=== PATIENT | female | born 1960 | race Two or more races ===

== ENCOUNTER 2022-01-03 11:08 | Outpatient (REF) | payer OTHER, SELFPAY ==
--- NOTE | ~2022-01-03 | MM_ITS ---
EXAMINATION: MM SCREENING DIGITAL BREAST TOMOSYNTHESIS, BILATERAL CLINICAL INFORMATION: Screening. Asymptomatic. The lifetime risk of breast cancer based on the Tyrer-Cuzick Model is 5%. COMPARISON: Outside mammography: 02/21/2018 ([facility]) TECHNIQUE: Digital breast tomosynthesis is performed in both the craniocaudal and mediolateral oblique views along with computer-aided detection (CAD). Synthesized 2D images are generated from the tomosynthesis. Additional right CC and left MLO views are provided. FINDINGS: The breasts are almost entirely fatty (ACR BI-RADS breast composition Category a). There are fibroglandular densities in the anterior breasts similar to outside exam. There is no interval mass or architectural abnormality or abnormal calcifications. No developing density. Biopsy clip marker again seen posterior 1:00 right breast. The axilla and skin contours are unremarkable. MM/MM tomosynthesis screening BI IMPRESSION: No mammographic evidence of malignancy. ASSESSMENT: BI-RADS 1: Negative RECOMMENDATION: Routine annual mammography screening. This patient's information was entered into a reminder system with a target due date for their next mammogram.
== END 2022-01-03 11:09 | disposition home or self-care (01) ==
LOC: HO.MAMMO 11:08
PROVIDERS: PCP Internal Medicine; Visit Provider Internal Medicine
DX: Z12.31 Encounter for screening mammogram for malignant neoplasm of breast (principal)
CPT/HCPCS: 77063; 77067

== ENCOUNTER 2022-11-10 06:17 | Outpatient (REF) | payer OTHER, SELFPAY | END 2022-11-10 06:18 | disposition home or self-care (01) | LOC: HO.HOSX 06:17 | PROVIDERS: Visit Provider Physician Assistant | DX: Z13.89 Encounter for screening for other disorder (principal) ==

== ENCOUNTER 2022-11-14 14:06 | Outpatient (REF) | payer OTHER, SELFPAY ==
--- NOTE | ~2022-11-14 | MR_ITS ---
EXAMINATION: MR KNEE WITHOUT CONTRAST, LEFT CLINICAL INFORMATION: Chronic left knee pain COMPARISON: None available. TECHNIQUE: MRI of the knee without contrast was performed using routine sequences on a high-field scanner. FINDINGS: MENISCI: Medial Meniscus: Ill-defined undersurface tearing throughout the posterior horn and body. Lateral Meniscus: Chronic tearing the anterior horn which is essentially absent, extending along the inner margin of the meniscal body. LIGAMENTS: Cruciate: Mucoid degeneration and probable chronic partial tearing of the ACL. The posterior cruciate ligament is intact. Collateral: Intact EXTENSOR MECHANISM: Intact ARTICULAR CARTILAGE/BONE: Patellofemoral Compartment: Small marginal osteophytes. Medial Compartment: Near full-thickness cartilage loss of the posterior weightbearing femoral condyle. Prominent marginal osteophytes. Lateral Compartment: Remote, healed fracture involving the anterior aspect of the tibia with a reference projecting superiorly. Cartilage thinning and surface irregularity throughout the weightbearing aspect with large marginal osteophytes. Osteophyte projects from the femoral condyle into the intercondylar notch. JOINT FLUID AND BURSAE: Trace joint effusion. MR/MR knee LT wo con IMPRESSION: 1. Ill-defined undersurface tearing of the posterior horn and body of the medial meniscus. 2. Chronic tearing of the anterior horn and body of the lateral meniscus. Remote, healed fracture of the lateral tibial plateau anteriorly. 3. Mucoid degeneration and probable chronic partial tearing of the ACL. 4. Moderate tricompartmental osteoarthritis with a trace joint effusion.
== END 2022-11-14 14:07 | disposition home or self-care (01) ==
LOC: HO.MRI 14:06
PROVIDERS: PCP Internal Medicine; Visit Provider Internal Medicine
DX: M25.562 Pain in left knee (principal)
CPT/HCPCS: 73721

== ENCOUNTER 2022-12-05 14:10 | Outpatient (REF) | payer OTHER, SELFPAY ==
[2022-12-05 17:09] LABS: Basophils Absolute Auto 0.1 X10*3/uL (0.0-0.2); Eosinophils Absolute Auto 0.3 X10*3/uL (0.0-0.4); Eosinophils Percent Auto 3.7 % (0-4); Hematocrit 41.6 % (37.0-47.0); Hemoglobin 13.7 g/dl (12.0-16.0); Imm Gran Abs Auto 0.02 X10*3/uL (0.00-0.03); Imm Gran Pct Auto 0.3 % (0.0-0.4); Lymphocytes Percent Auto 26.9 % (20-40); MANUAL DIFF FLAG NO; Mean Corpuscular HGB Conc 32.9 g/dl (31.0-35.0); Mean Corpuscular Hemoglobin 30.6 pg (27.0-33.0); Mean Corpuscular Volume 93.1 fL (80.0-98.0); Mean Platelet Volume 10.5 fL (9.4-12.3); Monocytes Absolute Auto 0.6 X10*3/uL (0.1-1.2); Monocytes Percent Auto 8.7 % (2-11); Neutrophils Absolute Auto 4.4 x10*3/uL (2.0-8.3); Neutrophils Percent Auto 59.4 % (45-73); Platelet Count 254 X10*3/uL (160-400); Red Blood Count 4.47 X10*6/uL (4.20-5.50); White Blood Count 7.4 X10*3/uL (4.8-10.8)
[2022-12-05 17:49] LABS: Creatinine Urine 74.66 mg/dL; Microalbumin Urine < 5.0 mg/L
[2022-12-05 21:11] LABS: Alanine Aminotransferase 11 U/L (0-31); Albumin Level 4.2 g/dL (3.5-5.0); Alkaline Phosphatase 71 U/L (39-117); Anion Gap 19 (12-20); Aspartate Amino Transferase 19 U/L (5-31); Bilirubin Direct 0.2 mg/dL (0.0-0.5); Bilirubin Total 0.6 mg/dL (0.0-1.0); Blood Urea Nitrogen 9 mg/dL (9-16); Calcium 10.6 mg/dL (8.4-10.2); Carbon Dioxide 23 mmol/L (22-29); Chloride 103 mmol/L (96-108); Cholesterol 209 mg/dL; Estimated Glomerular Filt Rate > 60; Glucose Random 94 mg/dL (60-115); HDL Cholesterol 48 mg/dL; LDL Cholesterol Calculated 118 mg/dl; Potassium 4.5 mmol/L (3.3-5.1); Sodium 140 mmol/L (135-145); Total Protein 8.1 g/dL (6.5-8.0); Triglycerides 219 mg/dL
[2022-12-05 21:25] LABS: Vitamin D 25-OH Total 61.6 ng/mL (>30)
== END 2022-12-05 14:11 | disposition home or self-care (01) ==
LOC: HO.HHCL 14:10
PROVIDERS: Visit Provider Internal Medicine
DX: Z00.00 Encounter for general adult medical examination without abnormal findings (principal); Z20.2 Contact with and (suspected) exposure to infections with a predominantly sexual mode of transmission; E11.22 Type 2 diabetes mellitus with diabetic chronic kidney disease; I12.9 Hypertensive chronic kidney disease with stage 1 through stage 4 chronic kidney disease, or unspecified chronic kidney disease; N18.9 Chronic kidney disease, unspecified
CPT/HCPCS: 36415; 80048; 80061; 80076; 82043; 82306; 85025

== ENCOUNTER 2022-12-26 08:47 | Outpatient (REF) | payer OTHER, SELFPAY ==
--- NOTE | ~2022-12-26 | XR_ITS ---
EXAMINATION: XR KNEE AP STANDING CLINICAL INFORMATION: Pain in right knee COMPARISON: None available. TECHNIQUE: AP bilateral standing view of the knees was obtained. Lateral and sunrise view of the left knee FINDINGS: No fracture. Trace joint effusion of the left knee. Alignment is anatomic. There is marked narrowing of the lateral joint compartment and medial and lateral marginal osteophytes within the right knee. There are marginal osteophytes involving the patellofemoral and lateral joint compartment of the left knee. There is mild narrowing of all 3 joint compartments of the left knee. Left quadriceps enthesopathy is noted. Question of 0.5 cm loose body within the left knee, seen on the lateral view. XR/XR knee standing BI IMPRESSION: 1. Bilateral osteoarthritis, right greater than left. 2. Question of loose body within the left knee.
--- NOTE | ~2022-12-26 | XR_ITS ---
EXAMINATION: XR KNEE, LEFT CLINICAL INFORMATION: Pain in right knee COMPARISON: None available. TECHNIQUE: AP bilateral standing view of the knees was obtained. Lateral and sunrise view of the left knee FINDINGS: No fracture. Trace joint effusion of the left knee. Alignment is anatomic. There is marked narrowing of the lateral joint compartment and medial and lateral marginal osteophytes within the right knee. There are marginal osteophytes involving the patellofemoral and lateral joint compartment of the left knee. There is mild narrowing of all 3 joint compartments of the left knee. Left quadriceps enthesopathy is noted. Question of 0.5 cm loose body within the left knee, seen on the lateral view. XR/XR knee LT 2V IMPRESSION: 1. Bilateral osteoarthritis, right greater than left. 2. Question of loose body within the left knee.
== END 2022-12-26 08:48 | disposition home or self-care (01) ==
LOC: HO.HOSX 08:47
PROVIDERS: Visit Provider Physician Assistant
DX: M17.12 Unilateral primary osteoarthritis, left knee (principal)
CPT/HCPCS: 73560; 73565; 99202

== ENCOUNTER 2022-12-26 12:28 | Outpatient (AMB) | payer OTHER, SELFPAY ==
--- NOTE | 2022-12-26 12:40 | A.OFFVIS_ITS ---
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 Patient reports that she has had ongoing pain in the left knee for some time now, she reports history of a left knee done in [place]. She finds that the knee is becoming more painful and weak. She wears a knee brace for support. 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 She has a hx of left knee done in [place] in ~2012. She complains of pain with daily activity, along with fullness and swelling in her knee. She is adamant she does not want to discuss surgery [facility] Surgical History (Updated 12/26/22 @ 13:05 by Hodan Bell) H/O left knee surgery History of shoulder surgery Social History (Updated 12/26/22 @ 13:05 by Hodan Bell) Patient Tobacco Use Status: Current everyday Tobacco user Cigarette Packs Per Day: 0.5 Current occupational status: disabled Review of Systems Const All systems reviewed & are unremarkable except as noted in HPI and below Physical Exam Vital Signs: BMI result Body Mass Index 34.8 Const General: no acute distress, alert and awake Orientation/consciousness: patient oriented x3 HEENT Head: Yes normocephalic and Yes atraumatic Eyes EOM: EOMs intact bilaterally Resp Effort & Inspection: normal respiratory effort and able to speak in complete sentences Cardio Jugular venous distension: no JVD Skin General skin exam: turgor normal Rashes: no rashes Neuro General: patient oriented x3 Extrem Other: Left Knee: Moderate effusion Medial & lateral JLT Psych Appearance: grossly normal Affect: normal affect Attitude: cooperative Results Reviewed Results Reviewed: I personally reviewed relevant MR images 1.? Ill-defined undersurface tearing of the posterior horn and body of the medial meniscus. 2.? Chronic tearing of the anterior horn and body of the lateral meniscus. Remote, healed fracture of the lateral tibial plateau anteriorly. 3.? Mucoid degeneration and probable chronic partial tearing of the ACL. 4.? Moderate tricompartmental osteoarthritis with a trace joint effusion. Assessment & Plan Assessment & Plan (1) Osteoarthritis of left knee: Code(s): M17.12 - Unilateral primary osteoarthritis, left knee Plan: This is a 62 year old woman with moderate-severe left knee OA, most predominantly in lateral compartment. She has a hx of left knee meniscectomy in ~2012. She has pain with daily activity, along with swelling. She denies any prior treatment, and wears a knee brace with daily activity. I discussed her diagnosis and treatment options, including injections, PT, and surgery. She is adamant she does not want surgery. She is opposed to all intervention at this time, and will work on strengthening exercises at home, as well as take NSAIDs. She can follow up prn to discuss treatment options. Plan Scribed for Tu Harrington MD by Jorge Alvarez, medical technologist chemistry, on 12/26/22 at 1:15 PM, EST. Orders: Orders XR knee LT 2V 11/10/22 M25.562 - Pain in left knee XR knee standing BI 11/10/22 M25.561 - Pain in right knee, M25.562 - Pain in left knee XR knee LT 2V 12/26/22 M25.562 - Pain in left knee XR knee standing BI 12/26/22 M25.561 - Pain in right knee, M25.562 - Pain in lef t knee Coding Level of Care Code New Pt Level 3 (77197) Diagnoses Osteoarthritis of left knee M17.12
[2022-12-26 12:58] VITALS: BMI 34.8
== END 2022-12-26 13:16 | disposition home or self-care (01) ==
PROVIDERS: Visit Provider Orthopaedic Surgery
DX: M17.12 Unilateral primary osteoarthritis, left knee (principal)
CPT/HCPCS: 99203

== ENCOUNTER 2023-01-26 12:20 | Outpatient (REF) | payer OTHER, SELFPAY | END 2023-01-26 12:21 | disposition home or self-care (01) | LOC: HO.MAMMO 12:20 | PROVIDERS: PCP Internal Medicine; Visit Provider Internal Medicine | DX: Z12.31 Encounter for screening mammogram for malignant neoplasm of breast (principal) | CPT/HCPCS: 77063; 77067 ==

== ENCOUNTER → 2023-01-26 12:45 | Outpatient (BNV) | payer OTHER, SELFPAY | PROVIDERS: PCP Internal Medicine; Visit Provider Radiology Diagnostic Radiology | DX: Z12.31 Encounter for screening mammogram for malignant neoplasm of breast (principal) | CPT/HCPCS: 77063; 77067 ==

== ENCOUNTER 2023-10-02 11:27 | Outpatient (REF) | payer OTHER, SELFPAY ==
[2023-10-02 13:06] LABS: MANUAL DIFF FLAG NO
[2023-10-02 13:42] LABS: Basophils Absolute Auto 0.1 X10*3/uL (0.0-0.2); Basophils Percent Auto 0.6 % (0-2); Eosinophils Absolute Auto 0.4 X10*3/uL (0.0-0.4); Eosinophils Percent Auto 4.2 % (0-4); Hematocrit 39.4 % (37.0-47.0); Hemoglobin 12.8 g/dl (12.0-16.0); Imm Gran Abs Auto 0.04 X10*3/uL (0.00-0.03); Imm Gran Pct Auto 0.5 % (0.0-0.4); Lymphocytes Absolute Auto 2.4 X10*3/uL (1.2-4.9); Lymphocytes Percent Auto 29.6 % (20-40); Mean Corpuscular HGB Conc 32.5 g/dl (31.0-35.0); Mean Corpuscular Hemoglobin 30.3 pg (27.0-33.0); Mean Corpuscular Volume 93.4 fL (80.0-98.0); Mean Platelet Volume 10.2 fL (9.4-12.3); Monocytes Absolute Auto 0.6 X10*3/uL (0.1-1.2); Monocytes Percent Auto 7.2 % (2-11); Neutrophils Absolute Auto 4.8 x10*3/uL (2.0-8.3); Neutrophils Percent Auto 57.9 % (45-73); Platelet Count 290 X10*3/uL (160-400); Red Blood Count 4.22 X10*6/uL (4.20-5.50); Red Cell Distribution Width 12.8 % (11.0-16.0); White Blood Count 8.2 X10*3/uL (4.8-10.8)
[2023-10-02 14:15] LABS: Alanine Aminotransferase 15 U/L (0-31); Alkaline Phosphatase 90 U/L (39-117); Anion Gap 15 (12-20); Aspartate Amino Transferase 22 U/L (5-31); Bilirubin Direct 0.1 mg/dL (0.0-0.5); Bilirubin Total 0.3 mg/dL (0.0-1.0); Blood Urea Nitrogen 16 mg/dL (9-16); Calcium 10.1 mg/dL (8.4-10.2); Carbon Dioxide 25 mmol/L (22-29); Chloride 104 mmol/L (96-108); Cholesterol 160 mg/dL (<200); Estimated Glomerular Filt Rate > 60; Glucose Random 82 mg/dL (60-115); HDL Cholesterol 50 mg/dL (>40); LDL Cholesterol Calculated 81 mg/dL (<100); Potassium 4.6 mmol/L (3.3-5.1); Sodium 139 mmol/L (135-145); Triglycerides 146 mg/dL (<150)
[2023-10-03 04:19] LABS: HIV AB/AG Nonreactive (Nonreactive); HIV Num 1 0.04 S/CO (0.00-0.99); ~HepC Num1 0.12 S/CO (0.00-0.79); ~Hepatitis C Antibody Nonreactive (Nonreactive)
[2023-10-03 11:50] LABS: CT PCR NOT DETECTED (Not Detect.); NG PCR NOT DETECTED (Not Detect.)
[2023-10-04 07:03] LABS: RPR Rapid Plasma Reagin NON-REACTIVE (NON-REACTIVE)
== END 2023-10-02 11:28 | disposition home or self-care (01) ==
LOC: HO.HHCL 11:27
PROVIDERS: Visit Provider Internal Medicine
DX: Z00.00 Encounter for general adult medical examination without abnormal findings (principal); Z11.4 Encounter for screening for human immunodeficiency virus [HIV]; Z13.6 Encounter for screening for cardiovascular disorders; Z20.2 Contact with and (suspected) exposure to infections with a predominantly sexual mode of transmission
CPT/HCPCS: 0353U; 36415; 80048; 80061; 80076; 82306; 85025; 86592; 86803; 87389

== ENCOUNTER 2023-10-31 13:15 | Outpatient (REF) | payer OTHER, SELFPAY ==
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
== END 2023-10-31 13:16 | disposition home or self-care (01) ==
LOC: HO.HHCX 13:15
PROVIDERS: Visit Provider Internal Medicine
DX: M25.511 Pain in right shoulder (principal); V89.2XXD Person injured in unspecified motor-vehicle accident, traffic, subsequent encounter
CPT/HCPCS: 73030

== ENCOUNTER 2023-12-01 11:12 | Outpatient (AMB) | payer OTHER, SELFPAY ==
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
[2023-12-01 11:17] VITALS: BMI 34.8
== END 2023-12-01 12:42 | disposition home or self-care (01) ==
PROVIDERS: PCP Internal Medicine; Visit Provider Orthopaedic Surgery
DX: M12.811 Other specific arthropathies, not elsewhere classified, right shoulder (principal); M25.311 Other instability, right shoulder
CPT/HCPCS: 99214

== ENCOUNTER → 2023-12-01 11:12 | Outpatient (BNVA) | payer OTHER, SELFPAY | PROVIDERS: PCP Internal Medicine; Visit Provider Orthopaedic Surgery ==

== ENCOUNTER 2023-12-18 14:39 | Outpatient (REF) | payer OTHER, SELFPAY ==
--- NOTE | ~2023-12-18 | US_ITS ---
EXAMINATION: US THYROID CLINICAL INFORMATION: Right thyroid lobe nodule. COMPARISON: None available. TECHNIQUE: Linear transducer grayscale and color Doppler examination with attention to the region of the thyroid. FINDINGS: SIZE: Measurements of the thyroid lobes and nodules are given in sagittal, anteroposterior and transverse dimensions respectively. Right Thyroid Lobe: 6.1 x 2.4 x 2.6 cm, volume 19.9 mL. Parenchyma: The gland echotexture is heterogeneous. Thyroid vascularity is normal. Left Thyroid Lobe: 4.2 x 1.4 x 1.3 cm, volume 4.2 mL. Parenchyma: The gland echotexture is heterogeneous. Thyroid vascularity is normal. Isthmus: 0.5 cm in maximum AP dimension. Estimated total number of nodules greater than or equal to 1 cm: 1. Spanish Linguist nodules are described as follows: 1. Location: Right inferior. Size: 3.0 x 2.1 x 2.6 cm, volume 8.5 mL. Nodule characteristics: Composition: Solid/almost completely solid (2). Echogenicity: Isoechoic (1). Shape: Not taller than wide (0). Margins: Smooth (0). Echogenic Foci: None (0). ACR TI-RADS total points: 3 ACR TI-RADS category: 3 2. Location: Left mid. Size: 0.4 x 0.4 x 0.5 cm, volume 0.05 mL. Nodule characteristics: Composition: Mixed cystic and solid (1). Echogenicity: Isoechoic (1). Shape: Not taller than wide (0). Margins: Smooth (0). Echogenic Foci: None (0). ACR TI-RADS total points: 2 ACR TI-RADS category: 2 3. Location: Left mid. Size: 0.6 x 0.3 x 0.5 cm, volume 0.04 mL. Nodule characteristics: Composition: Mixed cystic and solid (1). Echogenicity: Hypoechoic (2). Shape: Not taller than wide (0). Margins: Smooth (0). Echogenic Foci: Punctate echogenic foci (3). ACR TI-RADS total points: 6 ACR TI-RADS category: 4 NODES: No lymphadenopathy is seen in the tissue surrounding the thyroid gland. US/US thyroid IMPRESSION: 1. A 3.0 cm in maximal diameter inferior right thyroid lobe TR 3 nodule meets ACR biopsy criteria and is amenable to ultrasound-guided biopsy, if clinically indicated and not already performed. 2. There is heterogeneous thyroid echotexture, which can be associated with thyroiditis. 3. There is an asymmetric goiter, right lobe greater than left. ACR TI-RADS RECOMMENDATION REFERENCE: Ultrasound-guided fine-needle aspiration, followup ultrasound, no further follow up. * TR1 (0 point) and TR2 (2 points): No FNA or follow up. * TR3 (3 points): FNA if more than or equal to 2.5 cm in maximum dimension, followup ultrasound in 1, 3 and 5 years if 1.5 to 2.4 cm in maximum dimension. * TR4 (4-6 points): FNA if more than or equal to 1.5 cm in maximum dimension, followup ultrasound in 1, 2, 3 and 5 years if 1 to 1.4 cm in maximum dimension. * TR5 (more than or equal to 7 points): FNA if more than or equal to 1 cm in maximum dimension, followup ultrasound every year for 5 years if 0.5 to 0.9 cm in maximum dimension. * TR3, TR4 or TR5 nodules that are below the size threshold for followup receive no follow up.
== END 2023-12-18 14:40 | disposition home or self-care (01) ==
LOC: HO.US 14:39
PROVIDERS: Visit Provider Internal Medicine
DX: E04.1 Nontoxic single thyroid nodule (principal)
CPT/HCPCS: 76536

== ENCOUNTER 2024-02-22 10:59 | Outpatient (REF) | payer OTHER, SELFPAY ==
[2024-02-22 12:36] LABS: Creatinine Urine 60.98 mg/dL; Microalbum/Creatinine Ratio Ur 11.4 ug/mg cr (<30)
== END 2024-02-22 11:00 | disposition home or self-care (01) ==
LOC: HO.HHCL 10:59
PROVIDERS: Visit Provider Internal Medicine
DX: E11.22 Type 2 diabetes mellitus with diabetic chronic kidney disease (principal)
CPT/HCPCS: 82043; 82570

== ENCOUNTER 2024-02-27 14:23 | Outpatient (REF) | payer OTHER, SELFPAY ==
--- NOTE | ~2024-02-27 | MM_ITS ---
EXAMINATION: MM SCREENING DIGITAL BREAST TOMOSYNTHESIS, BILATERAL CLINICAL INFORMATION: Screening. Asymptomatic. COMPARISON: Mammography: Comparison is made with available priors TECHNIQUE: Digital breast mammography with tomosynthesis is performed in both the craniocaudal and mediolateral oblique views along with computer-aided detection (CAD). FINDINGS: There are scattered areas of fibroglandular density (ACR BI-RADS breast composition Category b). There are no significant masses, abnormal calcifications, or other abnormalities. MM/MM tomosynthesis screening BI IMPRESSION: No mammographic evidence of malignancy. ASSESSMENT: BI-RADS BI-RADS 1 - Negative RECOMMENDATION: Routine annual mammography screening. 1 year F/U This examination should not preclude the clinical evaluation of a suspicious palpable abnormality. This patient's information was entered into a reminder system with a target due date for their next mammogram. Electronically signed by: Crystal Charles DO 03/08/2024 09:04 AM EDT
== END 2024-02-27 14:24 | disposition home or self-care (01) ==
LOC: HO.MAMMO 14:23
PROVIDERS: PCP Internal Medicine; Visit Provider Internal Medicine
DX: Z12.31 Encounter for screening mammogram for malignant neoplasm of breast (principal)
CPT/HCPCS: 77063; 77067

== ENCOUNTER → 2024-02-27 14:45 | Outpatient (BNV) | payer OTHER, SELFPAY | PROVIDERS: PCP Internal Medicine; Visit Provider Internal Medicine | DX: Z12.31 Encounter for screening mammogram for malignant neoplasm of breast (principal) | CPT/HCPCS: 77063; 77067 ==

== ENCOUNTER 2024-02-29 10:32 | Outpatient (AMB) | payer OTHER, SELFPAY ==
[2024-02-29 10:34] VITALS: BMI 34.8
--- NOTE | 2024-02-29 10:34 | A.OFFVIS_ITS ---
Vital Signs 02/29/24 10:34 Height 4 ft 9 in Weight 161 lb BMI 34.8 Intake Visit Reasons: Preop RT shoulder capsular plication 03/06/24 NE Intake Note: Kim is a 63 year old right hand dominant female who presents today for a pre op appointment s/p RT shoulder capsular plication 03/06/24 NE. 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 Harrington. The patient has tried and failed all conservative treatments. She reports her pain is limiting her daily activities. Therefore, she has elected to proceed with a right shoulder capsular plication. Patient has no known allergy history. Patient is currently taking, as follows: -Aspirin 81 mg chewable tablet 1 tab PO. -Atorvastatin 40 mg PO. -Bupropion HCL XL 150 mg ea PO -Chlorthalidone 25 mg PO -Cholecalciferol 50 mcg PO -Famotidine 40 mg PO -Gabapentin 400 mg PO -Metformin 500 mg PO -Quetiapine 300 mg PO. -Trazodone 50 mg PO. Patient has a medical history, as follows: -Tobacco dependence -Diabetes. Patient has a surgical history, as follows: -Hx of right shoulder surgery; in [place]. -Hx of left knee surgery; in [place]. Patient has a social history, as follows: -Tobacco: Cigarettes, 0.5 PPD. [facility] Medical History (Updated 02/29/24 @ 11:04 by Quiana Olivares PA-C) Tobacco dependence Diabetes Surgical History (System 09/15/23 @ 09:43 by Yoli Xie) History of shoulder surgery H/O left knee surgery Social History Patient Tobacco Use Status: Current everyday Tobacco user Cigarette Packs Per Day: 0.5 Current occupational status: disabled Review of Systems Const All systems reviewed & are unremarkable except as noted in HPI and below Physical Exam Vital Signs: BMI result Body Mass Index 34.8 Const General: cooperative, healthy appearing, comfortable, no acute distress, well developed, alert and awake Orientation/consciousness: patient oriented x3 HEENT Head: Yes normal to inspection, Yes normocephalic and Yes atraumatic Eyes General: appearance normal, both eyes and all related structures Neck Neck: Yes normal visual inspection and Yes no lymphadenopathy Resp Effort & Inspection: normal respiratory effort and able to speak in complete sentences Cardio Rate: regular rate Peripheral pulses: Peripheral pulses 2+ throughout GI Inspection: Yes normal to inspection Palpation (GI): Soft to palpation Skin General skin exam: no rashes or lesions noted Neuro General: patient oriented x3 Extrem Other: + drop arm on right 2+ sulcus + apprehension 4-/5 EC Psych Mental Status: mental status grossly normal Assessment & Plan Assessment & Plan (1) Instability of right shoulder joint: Code(s): M25.311 - Other instability, right shoulder Category: Medical (2) Rotator cuff arthropathy of right shoulder: Code(s): M12.811 - Other specific arthropathies, not elsewhere classified, right shoulder Category: Medical Plan Ms. Cristian Bruce is a 63-year-old female who presents in the office today for her preoperative history and physical exam prior to a right shoulder capsular plication to be performed on 03/06/[address] Harrington. The patient has tried and failed all conservative treatments. She reports her pain is limiting her daily activities. Therefore, she has elected to proceed with a right shoulder capsular plication. Patient has no known allergy history. Patient is currently taking, as follows: -Aspirin 81 mg chewable tablet 1 tab PO. -Atorvastatin 40 mg PO. -Bupropion HCL XL 150 mg ea PO -Chlorthalidone 25 mg PO -Cholecalciferol 50 mcg PO -Famotidine 40 mg PO -Gabapentin 400 mg PO -Metformin 500 mg PO -Quetiapine 300 mg PO. -Trazodone 50 mg PO. Patient has a medical history, as follows: -Tobacco dependence -Diabetes. Patient has a surgical history, as follows: -Hx of right shoulder surgery; in [place]. -Hx of left knee surgery; in [place]. Patient has a social history, as follows: -Tobacco: Cigarettes, 0.5 PPD. The patient was placed in the sling, off the shelf. She will bring the sling on the day of surgery. I have placed a referral to physical therapy. I discussed in detail the procedure and what to expect pre and post operatively. We discussed the risks, benefits and alternatives to the surgery and the rehabilitation course. The risks include infection, bleeding, nerve injury, ongoing pain, swelling, and stiffness, perioperative risk of injury to bones and soft tissues, and blood clots. I have answered all questions and with their understanding they have consented to move forward with a right shoulder capsular plication to be performed on 03/06/[address] Harrington. Post operative medications were sent to the pharmacy, morphine ER 15 mg PO Q12H 6 tablets for 3 days and oxycodone-acetaminophen 5-325 mg 1 tab PO Q4-6H PRN, while in the office today. The patient was instructed that she should obtain the prescription prior to surgery but should not consume until after the procedure; as these should only be taken for postoperative pain management. Should the patient take these medications before surgery, a refill will not be sent to the pharmacy until their scheduled refill date. Follow-up will be at the post operative appointment on 03/14/24, or sooner if needed. Orders: Orders PT Evaluation and Treatment Today M25.311 - Other instability, right shoulder Medications: New morphine ER (MS Contin) Partial Fill upon patient request. 15 mg PO Q12H 6 tabs 0RF 3 days oxycodone-acetaminophen 5-325 mg (Percocet) Partial Fill upon patient request. 1 tab PO Q4-6H PRN 42 tabs 0RF pain (scale score 4-6) 7 days Patient Instructions: Scribed by Sandra Parikh medical receptionist medical assistant, for Quiana Olivares PA-C on 02/29/24 at 11:20 am EST. Coding Level of Care Code Global (29993) Diagnoses Instability of right shoulder joint M25.311 Rotator cuff arthropathy of right shoulder M12.811
== END 2024-02-29 11:22 | disposition home or self-care (01) ==
PROVIDERS: PCP Internal Medicine; Visit Provider Physician Assistant
DX: M25.311 Other instability, right shoulder (principal); M12.811 Other specific arthropathies, not elsewhere classified, right shoulder
CPT/HCPCS: 99024

== ENCOUNTER → 2024-02-29 10:32 | Outpatient (BNVA) | payer OTHER, SELFPAY | PROVIDERS: PCP Internal Medicine; Visit Provider Physician Assistant | DX: M25.311 Other instability, right shoulder (principal); M12.811 Other specific arthropathies, not elsewhere classified, right shoulder | CPT/HCPCS: 99212 ==

== ENCOUNTER → 2024-03-13 07:39 | Day surgery (SDC) | payer OTHER, SELFPAY ==
[2024-03-04 13:46] VITALS: BMI 34.8
--- NOTE | 2024-03-04 14:18 | P.CONAN_ITS ---
Documented by User: Milla Cortes NP 03/04/24 14:21 HPI - Anesthesia Eval Consult details Narrative: 63yo F for Right Shoulder Arthroscopy with Capsular Plication, 03/13/24 [facility] Active Problems Active Problems: All Active Problems Instability of right shoulder joint (Acute) Rotator cuff arthropathy of right shoulder (Acute) Osteoarthritis of left knee (Acute) Past Medical History Medical History Osteoarthritis HTN (hypertension) Tobacco dependence Diabetes Surgical History Surgical History History of shoulder surgery H/O left knee surgery Social History Social History Are you a primary property caretaker to a significant other at home: No Do you presently have visiting nurse or other home services: No Patient Tobacco Use Status: Current everyday Tobacco user Cigarette Packs Per Day: 0.5 Cigarettes Per Day: 12 Smoked in Last 30 Days: Yes Patient Interested in Nicotine Replacement: No Use of substances other than those prescribed or required for medical reasons: No Have you been hit, kicked, punched, or otherwise hurt by someone within the past year? If so, by whom?: No Are you DNR?: No Advance Directives: No Advance Directives Information Provided: Yes Recently lost weight without trying: No Nutrition Risks: No Nutritional Risk Patient : No Current occupational status: disabled Meds Allergies Allergy/AdvReac Type Severity Reaction Status Date / Time No Known Allergies Allergy Verified 03/13/24 09:39 Home Medications ?Medication ?Instructions ?Recorded ?Confirmed ?Last Taken ?Type aspirin 81 mg chewable tablet 1 tab PO DAILY 12/26/22 03/13/24 Unknown History atorvastatin 40 mg tablet 40 mg PO DAILY 12/26/22 03/13/24 Unknown History bupropion HCl 150 mg 24 hr tablet, 300 mg PO QAM 12/26/22 03/13/24 03/13/24 History extended release chlorthalidone 25 mg tablet 25 mg PO DAILY 12/26/22 03/13/24 Unknown History cholecalciferol (vitamin D3) 50 50 mcg PO DAILY 12/26/22 03/13/24 Unknown H istory mcg (2,000 unit) tablet (Vitamin D3) famotidine 40 mg tablet 40 mg PO DAILY 12/26/22 03/13/24 Unknown History gabapentin 800 mg tablet 400 mg PO DAILY 12/26/22 03/13/24 Unknown History metformin 500 mg tablet 500 mg PO BID 12/26/22 03/13/24 Unknown History quetiapine 300 mg tablet 300 mg PO BEDTIME 12/26/22 03/13/24 Unknown History trazodone 100 mg tablet 50 mg PO BEDTIME 12/26/22 03/13/24 Unknown History enalapril maleate 20 mg tablet 20 mg PO DAILY 03/13/24 03/13/24 03/13/24 History Exam Height,Weight and Vital Signs: Height 4 ft 9 in Weight 73.028 kg Pertinent Lab Results Pertinent Lab Results: Laboratory Tests 10/02/23 10/02/23 10:13 11:30 WBC 8.2 Hgb 12.8 Hct 39.4 Plt Count 290 Sodium 139 Potassium 4.6 Chloride 104 Carbon Dioxide 25 BUN 16 Creatinine 0.89 Assessment and Plan Assessment Anesthesia Assessment: Chart Reviewed Documented by User: Seble Moody MD 03/13/24 10:34 [facility] Past Medical History Medical History Osteoarthritis HTN (hypertension) Tobacco dependence Diabetes Surgical History Surgical History History of shoulder surgery H/O left knee surgery Social History Social History Are you a primary property caretaker to a significant other at home: No Do you presently have visiting nurse or other home services: No Patient Tobacco Use Status: Current everyday Tobacco user Cigarette Packs Per Day: 0.5 Cigarettes Per Day: 12 Smoked in Last 30 Days: Yes Patient Interested in Nicotine Replacement: No Use of substances other than those prescribed or required for medical reasons: No Have you been hit, kicked, punched, or otherwise hurt by someone within the past year? If so, by whom?: No Are you DNR?: No Advance Directives: No Advance Directives Information Provided: Yes Recently lost weight without trying: No Nutrition Risks: No Nutritional Risk Patient : No Current occupational status: disabled Meds Allergies Allergy/AdvReac Type Severity Reaction Status Date / Time No Known Allergies Allergy Verified 03/13/24 09:39 Home Medications ?Medication ?Instructions ?Recorded ?Confirmed ?Last Taken ?Type aspirin 81 mg chewable tablet 1 tab PO DAILY 12/26/22 03/13/24 Unknown History atorvastatin 40 mg tablet 40 mg PO DAILY 12/26/22 03/13/24 Unknown History bupropion HCl 150 mg 24 hr tablet, 300 mg PO QAM 12/26/22 03/13/24 03/13/24 History extended release chlorthalidone 25 mg tablet 25 mg PO DAILY 12/26/22 03/13/24 Unknown History cholecalciferol (vitamin D3) 50 50 mcg PO DAILY 12/26/22 03/13/24 Unknown History mcg (2,000 unit) tablet (Vitamin D3) famotidine 40 mg tablet 40 mg PO DAILY 12/26/22 03/13/24 Unknown History gabapentin 800 mg tablet 400 mg PO DAILY 12/26/22 03/13/24 Unknown History metformin 500 mg tablet 500 mg PO BID 12/26/22 03/13/24 Unknown History quetiapine 300 mg tablet 300 mg PO BEDTIME 12/26/22 03/13/24 Unknown History trazodone 100 mg tablet 50 mg PO BEDTIME 12/26/22 03/13/24 Unknown History enalapril maleate 20 mg tablet 20 mg PO DAILY 03/13/24 03/13/24 03/13/24 History Exam Airway Mallampati Class: II TM Dist: >3cm Neck ROM: Full Heart: rrr Lungs: cta Assessment and Plan Anesthetic Plan Anesthetic Plan: Other (case cancelled, BP SYSTOLIC 69 AT BEST, PT TOOK ALL HER MEDS ENALAPRIL, PAIN MEDS ETC . TOLD TO HOLD ENALAPRIL AND LONGACTING PAIN MEDS NEXT TIME.)
--- NOTE | 2024-03-13 09:05 | ECG_ITS ---
Test Reason : dm, htn, smoker Blood Pressure : / mmHG Vent. Rate : 090 BPM Atrial Rate : 090 BPM P-R Int : 136 ms QRS Dur : 074 ms QT Int : 372 ms P-R-T Axes : 029 061 050 degrees QTc Int : 455 ms Normal sinus rhythm Nonspecific T wave abnormality Borderline ECG No previous ECGs available Referred By: Milla Cortes Electronically Signed By:AMY BULLOCK
[2024-03-13 10:03] VITALS: BP 80/46; PULSE 90; RESP 14; TEMP 37; O2SAT 95; BMI 35.7
[2024-03-13] MEDS: Lactated Ringers 1,000 ML 100 ML IVCONT (10:07)
[2024-03-13 10:24] LABS: Glucose, Whole Blood 79 mg/dL (60-115)
== END | disposition home or self-care (01) ==
PROVIDERS: PCP Internal Medicine; Visit Provider Orthopaedic Surgery
DX: M12.811 Other specific arthropathies, not elsewhere classified, right shoulder (principal); Z53.8 Procedure and treatment not carried out for other reasons; I95.9 Hypotension, unspecified; M25.311 Other instability, right shoulder; E11.9 Type 2 diabetes mellitus without complications
CPT/HCPCS: 82947; 93005; J0131; J0690

== ENCOUNTER → 2024-03-13 09:05 | Outpatient (BNV) | payer OTHER, SELFPAY | PROVIDERS: PCP Internal Medicine; Visit Provider Internal Medicine | DX: E11.9 Type 2 diabetes mellitus without complications (principal) | CPT/HCPCS: 93010 ==

== ENCOUNTER 2024-04-10 07:49 | Day surgery (SDC) | payer OTHER, SELFPAY ==
[2024-04-08 08:11] VITALS: BMI 34.8
[2024-04-10] VITALS (10 sets, daily range): BP systolic 108–135; BP diastolic 35–92; PULSE 79–88; RESP 16–18; TEMP 36.4–36.6; O2SAT 92–98
[2024-04-10 09:37] LABS: Glucose, Whole Blood 73 mg/dL (60-115)
[2024-04-10] MEDS: Lactated Ringers 1,000 ML 100 ML IVCONT (09:48)
--- NOTE | 2024-04-10 09:51 | MHC.SHP ---
Pre-Procedural Eval Section A - 24 Hr Update-Section A only Date of Service: 04/10/24 The patient is an INPATIENT: No Changes since office visit: No Cold of Flu in the past 2 weeks, No New Medical Problems, No Changes in Medication and No Patient answered all questions The patient has been examined within 24 hours of the surgical procedure. The History & Physical has been completed within 30 days and I have reviewed it.: Yes Section B - Complete if H&P > 30 days Chief Complaint: Other specific arthropathies,instability Allergies: Allergies Allergy/AdvReac Type Severity Reaction Status Date / Time No Known Allergies Allergy Verified 03/13/24 09:39 Plan I have reviewed the history and physical and performed a pertinent physical examination on my patient. No changes have occurred unless specified. Time Spent With Patient Time: Total time managing care of this patient today ____ minutes.
--- NOTE | 2024-04-10 10:00 | HO.ANESPROP2 ---
Documented by User: Milla Cortes NP 04/09/24 10:30 HPI - Anesthesia Eval Consult details Narrative: 63yo F for Right Shoulder Arthroscopy with Capsular Plication Previous cancelled 02/2024 s/t low BP Anesthetic Plan Anesthetic Plan: Other (case cancelled, BP SYSTOLIC 69 AT BEST, PT TOOK ALL HER MEDS ENALAPRIL, PAIN MEDS ETC . TOLD TO HOLD ENALAPRIL AND LONGACTING PAIN MEDS NEXT TIME.) PMFSH Active Problems Active Problems: All Active Problems Instability of right shoulder joint (Acute) Rotator cuff arthropathy of right shoulder (Acute) Osteoarthritis of left knee (Acute) Past Medical History Medical History Osteoarthritis HTN (hypertension) Tobacco dependence Diabetes Surgical History Surgical History History of shoulder surgery H/O left knee surgery Social History Social History Are you a primary health and social care teacher to a significant other at home: No Do you presently have visiting nurse or other home services: No Patient Tobacco Use Status: Current everyday Tobacco user Tobacco use type: Cigarette Cigarette Packs Per Day: 0.5 Cigarettes Per Day: 1 Use of substances other than those prescribed or required for medical reasons: No Advance Directives: No Advance Directives Information Provided: Yes Current occupational status: disabled Meds Allergies Allergy/AdvReac Type Severity Reaction Status Date / Time No Known Allergies Allergy Verified 03/13/24 09:39 Home Medications ?Medication ?Instructions ?Recorded ?Confirmed ?Last Taken ?Type aspirin 81 mg chewable tablet 1 tab PO DAILY 12/26/22 04/10/24 Unknown History atorvastatin 40 mg tablet 40 mg PO DAILY 12/26/22 04/10/24 Unknown History bupropion HCl 150 mg 24 hr tablet, 300 mg PO QAM 12/26/22 04/10/24 03/13/24 History extended release chlorthalidone 25 mg tablet 25 mg PO DAILY 12/26/22 04/10/24 Unknown History cholecalciferol (vitamin D3) 50 50 mcg PO DAILY 12/26/22 04/10/24 Unknown History mcg (2,000 unit) tablet (Vitamin D3) famotidine 40 mg tablet 40 mg PO DAILY 12/26/22 04/10/24 04/10/24 07:00 History gabapentin 800 mg tablet 400 mg PO DAILY 12/26/22 04/10/24 04/10/24 07:00 History metformin 500 mg tablet 500 mg PO BID 12/26/22 04/10/24 Unknown History quetiapine 300 mg tablet 300 mg PO BEDTIME 12/26/22 04/10/24 Unknown History trazodone 100 mg tablet 50 mg PO BEDTIME 12/26/22 04/10/24 Unknown History enalapril maleate 20 mg tablet 20 mg PO DAILY 03/13/24 04/10/24 03/13/24 History Exam Height,Weight and Vital Signs: Height 4 ft 9 in Weight 73.028 kg Pertinent Lab Results Pertinent Lab Results: Laboratory Tests 10/02/23 10/02/23 10:13 11:30 WBC 8.2 Hgb 12.8 Hct 39.4 Plt Count 290 Sodium 139 Potassium 4.6 Chloride 104 Carbon Dioxide 25 BUN 16 Creatinine 0.89 Narrative Narrative: EKG 02/2024 Vent. Rate : 090 BPM Atrial Rate : 090 BPM P-R Int : 136 ms QRS Dur : 074 ms QT Int : 372 ms P-R-T Axes : 029 061 050 degrees QTc Int : 455 ms Normal sinus rhythm Nonspecific T wave abnormality Borderline ECG No previous ECGs available Assessment and Plan Assessment Anesthesia Assessment: Chart Reviewed Documented by User: Nailni Marie DO 04/10/24 10:40 HPI - Anesthesia Eval Consult details Narrative: 63yo F for Right Shoulder Arthroscopy with Capsular Plication Previous cancelled 02/2024 s/t low BP - okay today with SBP in the 120s. Smoker 1/2 ppd PMFSH Past Medical History Medical History Osteoarthritis HTN (hypertension) Tobacco dependence Diabetes Family History Family history of problems with anesthesia: No Surgical History Surgical History History of shoulder surgery H/O left knee surgery History of Problems with Anesthesia: No Social History Social History Are you a primary health and social care teacher to a significant other at home: No Do you presently have visiting nurse or other home services: No Patient Tobacco Use Status: Current everyday Tobacco user Tobacco use type: Cigarette Cigarette Packs Per Day: 0.5 Cigarettes Per Day: 1 Use of substances other than those prescribed or required for medical reasons: No Advance Directives: No Advance Directives Information Provided: Yes Current occupational status: disabled Meds Allergies Allergy/AdvReac Type Severity Reaction Status Date / Time No Known Allergies Allergy Verified 03/13/24 09:39 Home Medications ?Medication ?Instructions ?Recorded ?Confirmed ?Last Taken ?Type aspirin 81 mg chewable tablet 1 tab PO DAILY 12/26/22 04/10/24 Unknown History atorvastatin 40 mg tablet 40 mg PO DAILY 12/26/22 04/10/24 Unknown History bupropion HCl 150 mg 24 hr tablet, 300 mg PO QAM 12/26/22 04/10/24 03/13/24 History extended release chlorthalidone 25 mg tablet 25 mg PO DAILY 12/26/22 04/10/24 Unknown History cholecalciferol (vitamin D3) 50 50 mcg PO DAILY 12/26/22 04/10/24 Unknown History mcg (2,000 unit) tablet (Vitamin D3) famotidine 40 mg tablet 40 mg PO DAILY 12/26/22 04/10/24 04/10/24 07:00 History gabapentin 800 mg tablet 400 mg PO DAILY 12/26/22 04/10/24 04/10/24 07:00 History metformin 500 mg tablet 500 mg PO BID 12/26/22 04/10/24 Unknown History quetiapine 300 mg tablet 300 mg PO BEDTIME 12/26/22 04/10/24 Unknown History trazodone 100 mg tablet 50 mg PO BEDTIME 12/26/22 04/10/24 Unknown History enalapril maleate 20 mg tablet 20 mg PO DAILY 03/13/24 04/10/24 03/13/24 History Exam Exam Date and Time: 04/10/24 1000 Height,Weight and Vital Signs: Height 4 ft 9 in Weight 73.028 kg Vital Signs Temperature 97.9 F 04/10/24 09:28 Pulse Rate 88 04/10/24 09:28 Respiratory Rate 16 04/10/24 09:28 Blood Pressure 124/56 L 04/10/24 09:28 Pulse Oximetry 97 04/10/24 09:28 Oxygen Delivery Method Room Air 04/10/24 09:28 Temperature 97.9 F 04/10/24 09:28 Pulse Rate 88 04/10/24 09:28 Respiratory Rate 16 04/10/24 09:28 Blood Pressure 124/56 L 04/10/24 09:28 Pulse Oximetry 97 04/10/24 09:28 Oxygen Delivery Method Room Air 04/10/24 09:28 Airway Mallampati Class: II TM Dist: >3cm Denture: Upper and Lower Heart: S1S2 Lungs: CTAB Assessment and Plan Assessment Anesthesia Assessment: Anesthesia Plan Discussed and Chart Reviewed Final Anesthetic Review Family History of Problems with Anesthesia: No History of Problems with Anesthesia: No NPO: Yes ASA Class: II Final Preanesthetic Review: No Changes in Pt Med Stat, Meds/Allgs Chart Reviewed, Consent Obtained/Reviewed (economics department chair at bedside for translation) and Anes Risks/Benef Reviewed Patient Risk: Low Procedure Risk: Intermediate Anesthetic Plan Anesthetic Plan: GA, Regional Block (right brachial plexus block) and Agree w/ Assess. and Plan Disposition: Standard PACU
--- NOTE | 2024-04-10 12:03 | P.OP_ITS ---
Operative Note Operative Note Date of Service: 04/10/24 Narrative: Date of Service: 04/10/24 Pre-op diagnosis: Right shoulder rtc arthropathy Post-op diagnosis: other (Right shoulder RTC tear, Right shoulder biceps tenotomy) Procedure: Right shoulder RTC repair ( Subscapularis and Infraspinatus), biceps tenotomy, SAD. Implants: Kelly adn Nephew knotless Helacoil x 2 Surgeon: Tu Harrington MD Anesthesia: GETA and regional Was an Bore Mill Operator [employer] used for this Procedure?: Yes Bore Mill Operator [employer]: Quiana Olivares Estimated blood loss (mL): 20 IV fluids (mL): 850 Pathology: none sent Condition: stable Disposition: PACU Procedure in detail: Patient was brought to the operating room and placed the the beach chair position. All bony prominences were well padded and the limb was prepped and draped in standard sterile fashion. A time out was called to identify proper site, proper procedure and proper surgeon. IV antibiotics per weight were administered. I began by making a posterolateral stab incision with a 15 blade. A blunt trochar was placed into the glenohumeral joint and I insufflated the joint with saline and a 30 degree arthroscope was placed. I established an outside- in anterior portal just distal to the biceps tendon. I then began my inspection of the glenohumeral joint. There was a large degenerative biceps tear between the anchor and the groove. There were minimal cartilage changes at the inferior glenoid without humeral head changes. There was a full thickness under surface RTC tear. The subcapularis had a high grade partial tear ( 60%).. I debrided the loose cartilage of the glenoid and the degenerative labral tearing and performed a biceps tenotomy. I then placed two looped sutures through the subscapularis and release the subscapularis superiorly, posteriorly, and anteriorly. I debrdied the insertion down to bleeding bone with a spherical tomas and placed a 5.0 Helacoil and brought the subscapularis to its insertion while internally rotating the shoulder. I was satisfied with the repair I ascended into the SAS. A direct lateral portal was then established and I performed a bursectomy. The cuff was then examined. There was a full thickness tear of the supra and infraspinatus. the supra and most of the infra were retracted to the level of the glenoid and immobile. There was some posterior cuff that was mobile to the posterior bare area. I placed 3 looped suture through this, debrided the bare area down to bleeding bone and brought the 3 limbs of the 5.5 anchor. The majority of the cuff was NOT repairable. I then perfomred a 5mm SAD with an oval tomas. Final images were captured and I removed all instrumentation. Portals were closed with nylon. Patient was placed in an abduction sling, extubated and brought to the recovery room in stable condition. There were no known complications.
[2024-04-10] MEDS: fentaNYL citrate/PF 100 MCG/2 ML VIAL 25 MCG IVPUSH (12:45)
[2024-04-10] MEDS: oxyCODONE HCl Immed Release 5 MG TABLET PO (12:52)
== END 2024-04-10 13:38 | disposition home or self-care (01) ==
LOC: HO.SSS 07:50
PROVIDERS: PCP Internal Medicine; Visit Provider Orthopaedic Surgery
PROC: (CPT 29805; principal; 2024-04-10 10:30)
DX: M25.311 Other instability, right shoulder (principal); M12.811 Other specific arthropathies, not elsewhere classified, right shoulder; E11.9 Type 2 diabetes mellitus without complications; Z79.82 Long term (current) use of aspirin; Z79.84 Long term (current) use of oral hypoglycemic drugs; Z79.899 Other long term (current) drug therapy; Z98.890 Other specified postprocedural states; F17.210 Nicotine dependence, cigarettes, uncomplicated
CPT/HCPCS: 29827; 29828; 29826; 82947; C1713; J0131; J0171; J0690; J1100; J2003; J2250; J2405; J2704; J3010

== ENCOUNTER → 2024-04-10 07:49 | Outpatient (BNV) | payer OTHER, SELFPAY | PROVIDERS: PCP Internal Medicine; Visit Provider Orthopaedic Surgery | DX: S46.011A Strain of muscle(s) and tendon(s) of the rotator cuff of right shoulder, initial encounter (principal) | CPT/HCPCS: 29827 ==

== ENCOUNTER 2024-04-18 12:42 | Outpatient (AMB) | payer OTHER, SELFPAY ==
--- NOTE | 2024-04-18 13:06 | A.OFFVIS_ITS ---
Intake Visit Reasons: PO RT shoulder capsular plication 04/10/24 NE Intake Note: Kim is a 63 year old female who presents today for a post op appointment s/p RT shoulder capsular plication 04/10/24 NE. Patient reports she is having a lot of pain in her arm. Allergies No Known Allergies Allergy (Verified 04/18/24 13:31) HPI HPI PO RT shoulder capsular plication 04/10/24 NE: Details: 63-year-old female who presents in the office today 8 days status post right shoulder rotator cuff repair ( Subscapularis and Infraspinatus), biceps tenotomy, SAD, which was performed on 04/10/[address] Harrington. While in the office today, the patient reports experiencing severe pain in her right upper extremity. PFSH Medical History Osteoarthritis HTN (hypertension) Tobacco dependence Diabetes Surgical History History of shoulder surgery H/O left knee surgery Social History Are you a primary client care specialist to a significant other at home: No Do you presently have visiting nurse or other home services: No Patient Tobacco Use Status: Current everyday Tobacco user Tobacco use type: Cigarette Cigarette Packs Per Day: 0.5 Cigarettes Per Day: 1 Current occupational status: disabled Review of Systems Const All systems reviewed & are unremarkable except as noted in HPI and below Physical Exam Const General: cooperative, healthy appearing and no acute distress Resp Effort & Inspection: normal respiratory effort and able to speak in complete se ntences Cardio Rate: regular rate Peripheral pulses: Peripheral pulses 2+ throughout GI Palpation (GI): Soft to palpation Skin Lesions: no lesions Rashes: no rashes Extrem Other: Right shoulder: Incision sites are clean, dry, and intact. Suturesintact. No surrounding erythema or drainage. No signs of infection. Forward flexion and abduction to 45 degrees. External rotation to neutral. NVI. Assessment & Plan Assessment & Plan (1) Instability of right shoulder joint: Code(s): M25.311 - Other instability, right shoulder Category: Medical (2) Status post right rotator cuff repair: Code(s): Z98.890 - Other specified postprocedural states Category: Surgical Plan Ms. Alvarez is a 63-year-old female who presents in the office today 8 days status post right shoulder rotator cuff repair ( Subscapularis and Infraspinatus), biceps tenotomy, SAD, which was performed on 04/10/[address] Harrington. While in the office today, the patient reports experiencing severe pain in her right upper extremity. Sutures were removed and steri-strips were applied. The patient will remain in the sling for 6 weeks post-op. I have placed an order for physical therapy for a STAT appointment request. Follow-up will be in 4 weeks, or sooner if needed. Orders: Orders PT Evaluation and Treatment 04/18/24 M12.811 - Other specific arthropathies, not elsewhere classified, right shoulder Patient Instructions: Scribed by Sandra Parikh medical laboratory manager, for Quiana Olivares PA-C on 04/18/24 at 1:25 pm EST. Coding Level of Care Code Global (21837) Diagnoses Instability of right shoulder joint M25.311 Status post right rotator cuff repair Z98.890
== END 2024-04-18 13:47 | disposition home or self-care (01) ==
PROVIDERS: PCP Internal Medicine; Visit Provider Physician Assistant
DX: M25.311 Other instability, right shoulder (principal); Z98.890 Other specified postprocedural states
CPT/HCPCS: 99024

== ENCOUNTER → 2024-04-18 12:42 | Outpatient (BNVA) | payer OTHER, SELFPAY | PROVIDERS: PCP Internal Medicine; Visit Provider Physician Assistant | DX: M25.311 Other instability, right shoulder (principal); Z98.890 Other specified postprocedural states | CPT/HCPCS: 99212 ==

== ENCOUNTER 2024-05-16 13:20 | Outpatient (AMB) | payer OTHER, SELFPAY ==
--- NOTE | 2024-05-16 14:04 | A.OFFVIS_ITS ---
Intake Visit Reasons: PO RT shoulder capsular plication 04/10/24 NE Intake Note: Kim is a 63 year old female who presents today for a post op appointment s/p RT shoulder RTC Repair (Subscapularis and Infraspinatus), biceps tenotomy, SAD 04/10/24 NE Allergies No Known Allergies Allergy (Verified 04/18/24 13:31) HPI HPI PO RT shoulder capsular plication 04/10/24 NE: Details: Kim is a 63 year old female who presents today for a post op appointment s/p RT shoulder RTC Repair (Subscapularis and Infraspinatus), biceps tenotomy, SAD 04/10/24 NE. She states she is doing well. She is doing physical therapy. [facility] Medical History Osteoarthritis HTN (hypertension) Tobacco dependence Diabetes Surgical History History of shoulder surgery H/O left knee surgery Social History Are you a primary behavioral health care coordinator to a significant other at home: No Do you presently have visiting nurse or other home services: No Patient Tobacco Use Status: Current everyday Tobacco user Tobacco use type: Cigarette Cigarette Packs Per Day: 0.5 Cigarettes Per Day: 1 Current occupational status: disabled Physical Exam Extrem Other: Portals clean dry and intact. External rotation to 30 degrees. Assessment & Plan Assessment & Plan (1) Status post right rotator cuff repair: Code(s): Z98.890 - Other specified postprocedural states Category: Surgical Plan: Status post subscapularis and supraspinatus repair. Large repair protocol. Continue PT as per protocol. Follow up 6 weeks. May discontinue his sling. Coding Level of Care Code Global (60548) Diagnoses Status post right rotator cuff repair Z98.890
== END 2024-05-16 16:00 | disposition home or self-care (01) ==
PROVIDERS: PCP Internal Medicine; Visit Provider Orthopaedic Surgery
DX: Z98.890 Other specified postprocedural states (principal)
CPT/HCPCS: 99024

== ENCOUNTER → 2024-05-16 13:20 | Outpatient (BNVA) | payer OTHER, SELFPAY | PROVIDERS: PCP Internal Medicine; Visit Provider Orthopaedic Surgery | DX: Z47.89 Encounter for other orthopedic aftercare (principal); Z98.890 Other specified postprocedural states | CPT/HCPCS: 99212 ==

== ENCOUNTER 2024-06-27 12:49 | Outpatient (AMB) | payer OTHER, SELFPAY ==
--- NOTE | 2024-06-27 13:32 | A.OFFVIS_ITS ---
Vital Signs 06/27/24 13:37 Height 4 ft 5 in Weight 179 lb BMI 44.8 Intake Visit Reasons: PO - RT RTC Repair biceps tenotomy, [facility] 04/10/24 Intake Note: Kim is a 63 year old right hand dominant female who presents today for a post operative appointment 2 months s/p RT shoulder RTC Repair (Subscapularis and Infraspinatus), biceps tenotomy, [facility] 04/10/24. Patient reports that she is starting to feel better Allergies No Known Allergies Allergy (Verified 04/18/24 13:31) HPI HPI PO - RT RTC Repair biceps tenotomy, [facility] 04/10/24: Details: Kim is a 63 year old right hand dominant female who presents today for a post operative appointment 2 months s/p RT shoulder RTC Repair (Subscapularis and Infraspinatus), biceps tenotomy, [facility] 04/10/24. Patient reports that she is starting to feel better PFSH Medical History Osteoarthritis HTN (hypertension) Tobacco dependence Diabetes Surgical History History of shoulder surgery H/O left knee surgery Social History Are you a primary vehicle care specialist to a significant other at home: No Do you presently have visiting nurse or other home services: No Patient Tobacco Use Status: Current everyday Tobacco user Tobacco use type: Cigarette Cigarette Packs Per Day: 0.5 Cigarettes Per Day: 1 Current occupational status: disabled Physical Exam Vital Signs: BMI result Body Mass Index 44.8 Extrem Other: / Assessment & Plan Assessment & Plan (1) Status post right rotator cuff repair: Code(s): Z98.890 - Other specified postprocedural states Category: Surgical Plan: 63-year-old woman doing reasonably well considering her age and the extent of rotator cuff tearing. Unfortunately she sounds like she is not really attended all her physical therapy appointments. I wrote her another prescription. She needs to attend physical therapy. I implored her to do this. Follow up in 6 weeks Coding Level of Care Code Global (00351) Diagnoses Status post right rotator cuff repair Z98.890
[2024-06-27 13:37] VITALS: BMI 44.8
--- OUTSIDE RECORDS SUMMARY | 2024-06-27 16:37 | XMS_ITS | Encounter Summary ---
Author Organization [facility] Address [address] [place] [address] Care Team Providers Care Chief Digital Media Officer Name Role Phone Kim Wei MD Primary Care Provide r Encounter Details Date Type Department Care Team ([facility] st Contact Info) Description 12/05/2022 Orders Only [facility] MEDICINE [address], [place] [phone] Emmie Franklin, RN [address] [place] [address] Health care maintenance Social History Tobacco Use Types Packs/Day Years Used Date Smoking Tobacco: Every Day Cigarettes Passive Smoke Exposure: Current Smokeless Tobacco: Never Depression Answer Date Recorded Patient Health Questionnaire-9 Score 11 09/22/2022 Depression Answer Date Recorded Patient Health Questionnaire-2 Score 3 09/22/2022 Comments Unknown Sex and Gender Information Value Date Recorded Sex Assigned at Female 03/28/2022 10:34 AM EDT Legal Sex Female 10:08 AM EDT Gender Identity Female 03/28/2022 10:34 AM EDT Sexual Orientation Straight 03/28/2022 10 :34 AM EDT COVID-19 Exposure Response Date Recorded In the last 10 days, have yo u been in contact with someone who was confirmed or suspected to have Coronavirus/COVID-19? No / Unsure 12/05/2022 1:12 PM EDT documented as of this encounter Plan of Treatment Scheduled Orders Name Type Priority Associated Diagnoses Orde r Schedule Vitamin D, 25-Hydroxy, Total, Immunoassay Lab Routine Health care maintenance Expected: 12/05/2022 (Approximate), Expires: 12/06/2023 Hepatic Function Panel Lab Routine Health care maintenance Expected: 12/05/2022 (Approximate), Expires: 12/06/2023 Lipid Panel, Standard Lab Routine Health care maintenance Expected: 12/05/2022 (Approximate), Expires: 12/06/2023 Basic Metabolic Panel Lab Routine Health care maintenance Expected: 12/05/2022 (Approximate), Expires: 12/06/2023 CBC auto differential Lab Routine Health care maintenance Expected: 12/05/2022 (Approximate), Expires: 12/06/2023 documented as of this encounter Procedures Procedure Name Priority Date/Time Associated Diagnosis Comments ALBUMIN, RANDOM URINE W/CREATININE Routine 12/05/2022 2:16 PM EDT Health care maintenance CBC WITH AUTO DIFFERENTIAL Routine 12/05/2022 2:14 PM EDT Health care maintenance VITAMIN D,25-OH,TOTAL,IA Routine 12/05/2022 12:00 AM EDT Health care maintenance HEPATIC FUNCTION PANEL Routine 12/05/2022 12:00 AM EDT Health care maintenance LIPID PANEL, STANDARD Routine 12/05/2022 12:00 AM EDT Health care maintenance BASIC METABOLIC PANEL Routine 12/05/2022 12:00 AM EDT Health care maintenance documented in this encounter Results * Albumin, Random Urine W/Creatinine (12/05/2022 2:16 PM EDT) Creatinine, Urine 74.66 mg/dL [facility] Microalbumin Urine <5.0 mg/L [facility] Microalbum Creatinine Ratio Ur TNP ug/mg cr [facility] Comment:Unable to calculate albumin/creatinine ratio due to lowmicroalbumin or creatinine result. 12/05/2022 2:16 PM EDT 12/05/2022 4:42 PM EDT [facility] External Provider LAB URI NE ORDERABLES Final Result [facility] [address], [place] [phone] * CBC auto differential (12/05/2022 2:14 PM EDT) White Blood Count 7.4 4.8 - 10.8 X10*3/uL [facility] Red Blood Count 4.47 4.20 - 5.50 X10*6/uL [facility] Hemoglobin 13.7 12.0 - 16.0 g/dl [facility] Hematocrit 41.6 37.0 - 47.0 % [facility] Mean Corpuscular Volume 93.1 80.0 - 98.0 fL [facility] Mean Corpuscular Hemoglobin 30.6 27.0 - 33.0 pg [facility] Mean Corpuscular HGB Conc 32.9 31.0 - 35.0 g/dl [facility] Red Cell Distribution Width 13.0 11.0 - 16.0 % [facility] Platelet Count 254 160 - 400 X10*3/uL [facility] Mean Platelet Volume 10.5 9.4 - 12.3 fL [facility] Neutrophils Percent Auto 59.4 45 - 73 % [facility] Imm Gran Pct Auto 0.3 0.0 - 0.4 % [facility] Lymphocytes Percent Auto 26.9 20 - 40 % [facility] Monocytes Percent Auto 8.7 2 - 11 % [facility] Eosinophils Percent Auto 3.7 0 - 4 % [facility] Basophils Percent Auto 1.0 0 - 2 % [facility] NRBC Pct Auto 0.0 0.0 - 0.2 /100WBC [facility] Neutrophils Absolute Auto 4.4 2.0 - 8.3 x10*3/uL [facility] Imm Gran Abs Auto 0.02 0.00 - 0.03 X10*3/uL [facility] Lymphocytes Absolute Auto 2.0 1.2 - 4.9 X10*3/uL [facility] Monocytes Absolute Auto 0.6 0.1 - 1.2 X10*3/uL [facility] Eosinophils Absolute Auto 0.3 0.0 - 0.4 X10*3/uL [facility] Basophils Absolute Auto 0.1 0.0 - 0.2 X10*3/uL [facility] NRBC Abs Auto 0.000 0.0 - 0.012 X10*3/uL [facility] 12/05/2022 2:14 PM EDT 12/05/2022 5:26 PM EDT [facility] External Provider LAB BLO OD ORDERABLES Final Result Performing Organization Address [facility]/ZIP Co de Phone Number [facility] [address] [place] [phone] * Vitamin D, 25-Hydroxy, Total, Immunoassay (12/05/2022 12:00 AM EDT) Vitamin D 25-OH Total 61.6 >30 ng/mL [facility] Comment:Health Based Referen ce Values*< 20 ng/mL [id number] ng/mL Insufficient> 30 ng/mL Sufficient*Derek POLLOCK. N Engl J Med. 2007;357:266-280Care must be taken in interpreting Vitamin D results fromdifferent laboratories and methodologies. Published datademonstrated that results from patients undergoinghemodialysis may show a negative bias when tested withvarious automated 25-OH vitamin D assays when compared toLC-MS/MS.When testing samples from patients whose predominant form ofVitamin D is Vitamin D2, such as patients receiving VitaminD2 supplementation, results that are subtherapeutic shouldbe confirmed with another method such as LC-MS/MS. 12/05/2022 12/05/2022 8:5 2 PM EDT [facility] External Provider LAB BLO OD ORDERABLES Final Result Performing Organization Address [facility]/ZIP Co de Phone Number [facility] [address] [place] [phone] * Lipid Panel, Standard (12/05/2022 12:00 AM EDT) Triglycerides 219 mg/dL [facility] Comment:Desirable Triglyceri de: less than 150 mg/dLBorderline High Triglyceride 150-199 mg/dLHigh Triglyceride: 200-499 mg/dLVery High Triglyceride: greater than or equal to 5OO mg/dL Cholesterol 209 mg/dL [facility] Comment:Desirable Cholestero l: less than 200 mg/dLBorderline High Cholesterol: 200-239 mg/dLHigh Cholesterol: greater than 239 mg/dL LDL Cholesterol Calculated 118 mg/dl [facility] Comment:Desirable LDL: less than 100 mg/dLNear Optimal/Above Optimal LDL: 110- 129 mg/dLBorderline High LDL: 130-159 mg/dLHigh LDL: 160-189 mg/dLVery High LDL: greater than or equal to 190 mg/dL HDL Cholesterol 48 mg/dL [facility] Comment:Desirable HDL: great er than 40 mg/dL Note: This HDL assay may give artificially low results in patients with liver disease. 12/05/2022 12/05/2022 8:5 2 PM EDT us [facility] External Provider LAB BLO OD ORDERABLES Final Result [facility] [address] [place] [phone] * (ABNORMAL) Basic Metabolic Panel (12/05/2022 12:00 AM EDT) Sodium 140 135 - 145 mmol/L [facility] Potassium 4.5 3.3 - 5.1 mmol/L [facility] Chloride 103 96 - 108 mmol/L [facility] Carbon Dioxide 23 22 - 29 mmol/L [facility] Anion Gap 19 12 - 20 [facility] Urea Nitrogen (BUN) 9 9 - 16 mg/dL [facility] Creatinine, Serum 0.93 0.5 - 1.4 mg/dL [facility] Estimated Glomerular Filt Rate >60 [facility] Comment:NOTE: For -Am erican individuals, multiply the result by 1.210.Chronic Kidney Disease: Estimated GFR < 60 mL/min/[id number] Kidney Disease: Estimated GFR < 15 mL/min/1.73m2 Glucose 94 60 - 115 mg/dL [facility] Calcium 10.6(H) 8.4 - 10.2 mg/dL [facility] 12/05/2022 12/05/2022 8:5 2 PM EDT [facility] External Provider LAB BLO OD ORDERABLES Final Result Performing Organization Address [facility] Co de Phone Number [facility] [address] [place] [phone] * (ABNORMAL) Hepatic Function Panel (12/05/2022 12:00 AM EDT) Bilirubin, Total 0.6 0.0 - 1.0 mg/dL [facility] Bilirubin, Direct 0.2 0.0 - 0.5 mg/dL [facility] Aspartate Amino Transferase 19 5 - 31 U/L [facility] Alanine Aminotransferase 11 0 - 31 U/L [facility] Total Protein 8.1(H) 6.5 - 8.0 g/dL [facility] Albumin Level 4.2 3.5 - 5.0 g/dL [facility] Alkaline Phosphatase 71 39 - 117 U/L [facility] 12/05/2022 12/05/2022 8:5 2 PM EDT [facility] External Provider LAB BLO OD ORDERABLES Final Result Performing Organization Address [facility] Co de Phone Number [facility] [address] [place] [phone] documented in this encounter Visit Diagnoses Diagnosis Health care maintenance documented in this encounter Additional Health Concerns Assessment Noted Time PHQ-9 Depression Total Score: 11 023 1:38 PM EDT documented as of this encounter Care Teams Chief Digital Media Officer Relationship Specialty Start Date End Date Kim Wei MD [address] [place] [address] PCP - General Family Medicine 03/21/18 documented as of this encounter
--- OUTSIDE RECORDS SUMMARY | 2024-06-27 16:37 | XMS_ITS | Clinical Summary ---
Author Organization [facility] Address [address] [place] [address] Care Team Providers Care Tire Fixer Name Role Phone Charlotte Oreilly PA-C Primary Care Provider [phone] Source Comments PLEASE NOTE, if this patient is a minor, it may be UNLAWFUL to discuss sensitive information that is contained in these records (such as FAMILY PLANNING, MENTAL HEALTH or SUBSTANCE ABUSE) with the minor patient's parent or other person without the patient's specific authorization.[facility] Allergies No known active allergies Medications albuterol sulfate 90 mcg/actuation inhaler Inhale 2 Puffs into the lungs every 4 (four) hours as needed for shortness of breath or wheezing 1 Inhaler 5 8 Active atorvastatin (LIPITOR) 20 mg tabletIndications :Diabetes mellitus without complication (HCC-CMS) Take 1 Tab by mouth once daily 30 Tab 5 8 Active busPIRone (BUSPAR) 10 mg tablet Take 1 Tab by mouth 3 (three) times daily 90 Tab 2 8 Active buPROPion HCl (WELLBUTRIN XL) 150 mg 24 hr tabletIndications :Mental health disorder Take 1 Tab by mouth every morning Swallow whole. Do not crush or chew. 30 Tab 2 8 Active metFORMIN (GLUCOPHAGE) 500 mg tabletIndications :Diabetes mellitus without complication (HCC-CMS) Take 1 Tab by mouth 2 (two) times daily with a meal 60 Tab 5 8 Active enalapril maleate (VASOTEC) 20 mg tabletIndications :Essential hypertension Take 1 Tab by mouth 2 (two) times daily 60 Tab 5 8 Active doxepin (SINEQUAN) 25 mg capsuleIndication s:Mental health disorder TAKE ONE CAPSULE BY MOUTH DAILY AT BEDTIME 90 Cap 2 8 Active diclofenac sodium (VOLTAREN) 1 % gelIndications:Ch ronic pain of right knee Apply topically 2 (two) times daily 100 g 1 8 Active blood pressure test kit-[facility] ons:Essential hypertension BLOOD PRESSURE MONITOR. Check blood pressure once daily in sitting position. Dx: I10. WT: 187 lb Ht: 4' 5 1 Kit 8 Active polyethylene glycol 3350 (GLYCOLAX, MIRALAX) 17 gram packetIndications :Constipation, unspecified constipation type Take 17 g by mouth once daily 28 Each 1 8 Active raNITIdine HCl (ZANTAC) 300 mg tabletIndications :Dyspepsia TAKE 1 TABLET BY MOUTH DAILY AT BEDTIME 90 Tab 3 [address] Active [address] tabletIndications :Diabetes mellitus without complication ([facility]) TAKE 1 TABLET BY MOUTH DAILY 30 Tab 9 Active QUEtiapine (SEROQUEL) 300 mg tabletIndications :Mental health disorder TAKE 1 TABLET BY MOUTH EVERY NIGHT AT BEDTIME 30 Tab 9 Active BANOPHEN 25 mg capsuleIndication s:Scabies infestation,Lice infestation TAKE 1 CAPSULE BY MOUTH EVERY 6 HOURS NEEDED FOR ALLERGIES OR ITCHING 30 Cap 9 Active Active Problems Problem Noted Date Diagnosed Date Non morbid obesity due to excess calories 2015 Mild intermittent asthma without complication Mental health disorder 04/27/2016 Essential hypertension 04/27/2016 Diabetes mellitus without complication ([facility]-CMS) 04/27/2016 Immunizations Name Administration Dates Next Due Flu, Preservative Free 02/27/2018 INFLUENZA, SEASONAL, INJECTABLE 04/27/2016 Social History Tobacco Use Types Packs/Day Years Used Date Smoking Tobacco: Every Day Cigarettes Smokeless Tobacco: Current Comments:half of pack a day Alcohol Use Standard Drinks/Week Comments Yes 0 (1 standard drink = 0.6 oz pur e alcohol) occ Social Connections Answer Date Recorded Social Connections and Isolation 0 01/16/2019 Financial Resource Strain Answer Date R ecorded Financial Resource Strain 0 2018 Stress Answer Date Recorded Stress 0 01/16/2019 Physical Activity Answer Date Recorded Physical Activity 0 01/16/2019 Food Insecurity Answer Date Recorded Food 0 01/16/2019 Transportation Needs Answer Date Record ed Transportation 0 01/16/2019 Housing Stability Answer Date Recorded Housing 0 01/16/2019 Safety and Environment Answer Date Jose E rded Safety 0 01/16/2019 Utilities Answer Date Recorded Utilities 0 01/16/2019 Employment Answer Date Recorded Employment 0 01/16/2019 Comments No Sex and Gender Information Value Date Recorded Sex Assigned at Female 08/23/2017 1:24 PM PDT Legal Sex Female 11:42 AM PDT Gender Identity Female 08/23/2017 1:24 PM PDT Sexual Orientation Straight 08/23/2017 1: 24 PM PDT Last Filed Vital Signs Vital Sign Reading Time Taken Comments Blood Pressure 116/70 03/05/2018 3:58 PM EDT Pulse 99 03/05/2018 3:58 PM EDT Temperature 36.8 ??C (98.2 ??F) 03/05/2018 3:58 PM ED T Respiratory Rate 18 03/05/2018 3:58 PM EDT Oxygen Saturation - - Inhaled Oxygen Concentration - - Weight 84.8 kg (187 lb) 03/05/2018 3:58 PM EDT Height 149.9 cm (4' 11 ) 07/08/2016 4:27 PM EST Body Mass Index 37.77 07/08/2016 4:27 PM EST Plan of Treatment Not on file Insurance [place] Care Teams Tire Fixer Relationship Specialty Start Date End Date Charlotte Oreilly PA-C [address] [place] [address] PCP - General Internal Medicine 02/01/18
--- OUTSIDE RECORDS SUMMARY | 2024-06-27 16:37 | XMS_ITS | Encounter Summary ---
Author Organization [employer] Address [address] [place] [address] Care Team Providers Care Customer Solutions Architect Name Role Phone Kim Wei MD Primary Care Provide r Reason for Visit * Reason Comments Med Refill Encounter Details Date Type Department Care Team ([facility] st Contact Info) Description 06/03/[address] [facility] MEDICINE [address], [place] [phone] Kim Wei MD [address] [place] [address] Dermatitis Social History Tobacco Use Types Packs/Day Years Used Date Smoking Tobacco: Every Day Cigarettes Passive Smoke Exposure: Current Smokeless Tobacco: Never Alcohol Use Standard Drinks/Week Comments Yes 0 (1 standard drink = 0.6 oz pur e alcohol) OC Alcohol Answer Date Recorded Frequency of Alcohol Consumption Not on file 12/27/2023 Average Number of Drinks Not on file 024 Frequency of Binge Drinking Not on file 11/28 Score 0 12/27/2023 Depression Answer Date Recorded Patient Health Questionnaire-9 Score 10 12/27/2023 Patient Health Questionnaire-9 Score 10 12/27/2023 Last PHQ-9: Questionnaire Data Not on file 0 12/27/2023 Housing Stability Answer Date Recorded What is your housing situation today? I do not have housing (Staying with others, in a hotel, in a assisted, living outside on the street, on a beach, in a car, or in a park 12/18/[address] you li ve. Do you have problems with any of the following? None of the above 12/18/2023 Food Insecurity Answer Date Recorded Within the past 12 months, y ou worried that your food would run out before you got money to buy more: Never True 12/18/2023 Within the past 12 months,th e food you bought just didn't last and you didn't have enough money to get more: Never True Transportation Answer Date Recorded In the past 12 months, has l ack of transportation kept you from medical appts, meetings, work or from getting things needed for daily living? Yes, it has kept me from non-medical meetings, work, or getting things that I need 12/18/2023 Utilities Answer Date Recorded In the past 12 months, has t he electric, gas, oil or water company threatened to shut off services in your home? No 12/18/2023 Depression Answer Date Recorded Patient Health Questionnaire-2 Score 2 12/27/2023 Internet Access Answer Date Recorded Internet Access Q1 No 01/26/2024 Internet Access Q2 I do not want or need it 12/29 Comments Unknown Sex and Gender Information Value Date Recorded Sex Assigned at Female 03/28/2022 10:34 AM EDT Legal Sex Female 10:08 AM EDT Gender Identity Female 03/28/2022 10:34 AM EDT Sexual Orientation Straight 03/28/2022 10 :34 AM EDT documented as of this encounter Plan of Treatment Not on file documented as of this encounter Visit Diagnoses Diagnosis Dermatitis Contact dermatitis and other eczema, due to unspecified cause documented in this encounter Additional Health Concerns Assessment Noted Time PHQ-9 Depression Total Score: 10 024 3:41 PM EDT documented as of this encounter Care Teams Customer Solutions Architect Relationship Specialty Start Date End Date Kim Wei MD [address] [place] [address] PCP - General Family Medicine 03/21/18 documented as of this encounter
--- OUTSIDE RECORDS SUMMARY | 2024-06-27 16:37 | XMS_ITS | Clinical Summary ---
Author Organization [facility], Address [address] [place] [address] [place] [address] Phone Care Team Providers Care Seed Specialist Name Role Phone Kim Wei MD Primary Care Provide r Allergies No known active allergies Medications albuterol HFA (PROVENTIL HFA;VENTOLIN HFA) 108 (90 Base) MCG/ACT inhaler Inhale 2 puffs every 4 (four) to 6 (six) hours if needed 1 Active aspirin 81 MG chewable tablet CHEW AND SWALLOW 1 TABLET BY MOUTH EVERY DAY 1 Active atorvastatin (LIPITOR) 40 MG tablet Take 40 mg by mouth 1 (one) time each day 1 Active Blood Glucose Monitoring Suppl (SolarPower [place]Style [place] Lite) w/Device kit TEST BLOOD SUGAR TWICE DAILY 1 Active chlorthalidone 25 MG tablet Take 25 mg by mouth 1 (one) time each day 1 Active cholecalcifero l (VITAMIN D-3) 50 MCG (1999 UT) tablet 1 Active Diclofenac Sodium 1 % gel Apply topically 8 Active enalapril (VASOTEC) 20 MG tablet Take 20 mg by mouth 1 (one) time each day 1 Active famotidine (PEPCID) 40 MG tablet 1 Active gabapentin (NEURONTIN) 800 MG tablet Take 800 mg by mouth 3 times a day 1 Active TRUEplus Lancets 33G misc TEST BLOOD SUGAR TWICE DAILY 1 Active metFORMIN (GLUCOPHAGE) 500 MG tablet Take 500 mg by mouth 1 (one) time each day 1 Active QUEtiapine (SEROquel) 300 MG tablet Take 300 mg by mouth 1 (one) time each day 1 Active triamcinolone (KENALOG) 0.1 % cream APPLY THIN LAYER TOPICALLY TO THE AFFECTED AREA TWICE DAILY 1 Active QUEtiapine XR (SEROquel XR) 400 MG 24 hr tablet TAKE 1 TABLET BY MOUTH EVERY DAY IN THE EVENING WITHOUT FOOD OR WITH A LIGHT MEAL 1 Active pramipexole (MIRAPEX) 0.25 MG tablet 2 Active busPIRone (BUSPAR) 30 MG tablet TAKE 1 TABLET BY MOUTH TWICE DAILY FOR ANXIETY 2 Active buPROPion XL (WELLBUTRIN XL) 300 MG 24 hr tablet Take 300 mg by mouth 2 Active traZODone (DESYREL) 100 MG tablet Take 100 mg by mouth at night if needed 2 Active buPROPion XL (WELLBUTRIN XL) 150 MG 24 hr tablet Take 150 mg by mouth 1 (one) time each day 2 Active nitrofurantoin , macrocrystal-m onohydrate, (MACROBID) 100 MG capsule TAKE 1 CAPSULE BY MOUTH EVERY 12 HOURS WITH FOOD 2 Active metroNIDAZOLE (METROGEL) 0.75 % vaginal gel INSERT 1 APPLICATORFUL VAGINALLY EVERY DAY AT BEDTIME 2 Active Active Problems Problem Noted Date Diagnosed Date Serum creatinine above reference range 2 Diabetes mellitus without complication 6 Essential hypertension 04/27/2016 Social History Tobacco Use Types Packs/Day Years Used Date Smoking Tobacco: Every Day Smokeless Tobacco: Never Alcohol Use Standard Drinks/Week Comments Not Currently 0 (1 standard drink = 0.6 oz pur e alcohol) Comments Unknown Sex and Gender Information Value Date Recorded Sex Assigned at Not on file Legal Sex Female 3:23 PM EST Gender Identity Not on file Sexual Orientation Not on file Last Filed Vital Signs Vital Sign Reading Time Taken Comments Blood Pressure 100/60 02/16/2022 3:24 PM EDT Pulse - - Temperature - - Respiratory Rate - - Oxygen Saturation - - Inhaled Oxygen Concentration - - Weight - - Height - - Body Mass Index - - Plan of Treatment Health Maintenance Due Date Last Done Comments Breast Cancer Screening 1960 Pneumococcal Vaccine: Pediat rics (0 to 5 Years) and At-Risk Patients (6 to 64 Years) (1 of 2 - PCV) 1966 Colorectal Cancer Screening: Annual FOBT 2009 Colorectal Cancer Screening: Colonoscopy 2009 Colorectal Cancer Screening: Sigmoidoscopy 2009 Diabetes: Hemoglobin A1C 04/28/2021 03/05/2018 Diabetes: Ophthalmology Exam 04/28/2021 Diabetes: Pedal Pulse Checked 04/28/2021 Diabetes: Sensory Foot Exam 04/28/2021 Diabetes: Visual Foot Exam 04/28/2021 Influenza Vaccine (#1) 2024 02/27/2018 Hepatitis B Vaccine Aged Out No longe r eligible based on patient's age to complete this topic Insurance [facility] C[facility] DUAL SNP ([id number]) [employer] [id number] Care Teams Seed Specialist Relationship Specialty Start Date End Date Kim Wei MD [address] [place] [phone] PCP - General Internal Medicine 04/27/21
--- OUTSIDE RECORDS SUMMARY | 2024-06-27 16:37 | XMS_ITS | Clinical Summary ---
Author Organization [facility] Address [address] [place] [address] Phone Care Team Providers Care Liner Reroll Tender Name Role Phone Sravan Wei MD Primary Care Provide r Allergies No known active allergies Medications Medication Sig Dispensed Refills Start Date End Date Status enalapril (VASOTEC) 20 mg tablet Take 1 tablet (20 mg total) by mouth 1 (one) time each day. Active albuterol HFA (PROAIR HFA ; PROVENTIL HFA ; VENTOLIN HFA) 90 mcg/actuation inhaler INHALE 2 PUFFS BY MOUTH EVERY 4 TO 6 HOURS NEEDED 03/02/2021 Active aspirin 81 mg chewable tablet Chew 1 tablet (81 mg total) 1 (one) time each day. 03/03/2021 Active UNABLE TO FIND Blood Pressure Monitoring (Omron 3 Series BP Monitor) Device, CHECK BLOOD PRESSURE EVERY DAY 03/05/2021 Active buPROPion XL (WELLBUTRIN XL) 150 mg 24 hr tablet Take 150 mg by mouth daily. 03/01/2021 Active busPIRone (BUSPAR) 10 mg tablet Take 1 tablet (10 mg total) by mouth 2 (two) times a day. 03/01/2021 Active chlorthalidone (HYGROTON) 25 mg tablet Take 1 tablet (25 mg total) by mouth 1 (one) time each day. 03/01/2021 Active cholecalciferol (VITAMIN D-3) 50 mcg (2,000 unit) tablet Take 1 tablet (2,000 Units total) by mouth 1 (one) time each day. 03/01/2021 Active famotidine (PEPCID) 40 mg tablet TAKE 1 TABLET BY MOUTH EVERY DAY AT BEDTIME 03/01/2021 Active gabapentin (NEURONTIN) 800 mg tablet TAKE 1 TABLET BY MOUTH THREE TIMES DAILY 03/01/2021 Active blood sugar diagnostic (FreeStyle Lite Strips) test strip USE TO TEST TWICE A DAY 03/01/2021 Active ibuprofen (ADVIL,MOTRIN) 600 mg tablet TAKE 1 TABLET BY MOUTH THREE TIMES DAILY FOR 7 DAYS 01/20/2021 Active metroNIDAZOLE (METROGEL) 0.75 % (37.5mg/5 gram) vaginal gel 1 full applicator for 5days at bedtime 02/14/2018 Active metFORMIN (GLUCOPHAGE) 500 mg tablet Take 500 mg by mouth 2 times daily (with meals). Active amitriptyline HCl (ELAVIL ORAL) Take by mouth. Active QUEtiapine (SEROquel) 300 mg tablet Take 300 mg by mouth 2 times daily. Active Surgical History Surgery Date Site/Laterality Comments SHOULDER SURGERY PROCEDURE: CA UNLISTED PROCEDURE SHOULDER KNEE SURGERY PROCEDURE: HISTORICAL KNEE SURGERY; COMMENT: left Medical History Medical History Date Comments Diabetes mellitus type 2, co ntrolled, with complications (CMS/HCC) DX:Diabetes mellitus type 2, controlled, with complications (HCC) Essential hypertension DX:Essent ial hypertension Asthma DX:Asthma Family History Medical History Relation Name Comments Hypertension Brother Hypertension Mother Breast cancer Neg Hx Colon cancer Neg Hx Ovarian cancer Neg Hx Prostate cancer Neg Hx Relation Name Status Comments Brother Father Mother Social History Tobacco Use Types Packs/Day Years Used Date Smoking Tobacco: Some Days Cigarettes Smokeless Tobacco: Never Alcohol Use Standard Drinks/Week Comments No 0 (1 standard drink = 0.6 oz pur e alcohol) Sex and Gender Information Value Date Recorded Sex Assigned at Not on file Gender Identity Not on file Sexual Orientation Not on file Job Start Date Occupation Industry Not on file Not on file Not on file Obstetrics History Last Filed Vital Signs Vital Sign Reading Time Taken Comments Blood Pressure 110/82 02/26/2024 1:51 PM EDT Pulse 106 02/26/2024 1:51 PM EDT Temperature - - Respiratory Rate - - Oxygen Saturation - - Inhaled Oxygen Concentration - - Weight 76.7 kg (169 lb) 02/26/2024 1:51 PM EDT Height 149.9 cm (4' 11 ) 02/26/2024 1:51 PM EDT Body Mass Index 34.13 02/26/2024 1:51 PM EDT Plan of Treatment Upcoming Encounters Date Type Department Care Team (Late st Contact Info) Description 2024 1:30 PM EST Office Visit Obstetrics & Gynecology - [address] [phone] Emely Barnes, CNM [address] [place] [address] Health Maintenance Due Date Last Done Comments COVID-19 Vaccine (#1) 1965 Pneumococcal Vaccine: Pediatrics (0 to 5 Years) and At-Risk Patients (6 to 64 Years) (1 of 2 - PCV) 1966 Diabetes: Annual Foot Exam 1970 Diabetes: Annual Retina Eye Exam 1970 DTaP,Tdap,and Td Vaccines (1 - Tdap) 1979 Zoster Vaccines (1 of 2) 1979 Diabetes: Annual GFR (Glomerular Filtration Rate) 03/05/2019 03/05/2018 Breast Cancer Screening 02/22/2020 02/21/2018 RSV Immunization Patients 60 + Years Old (1 - Risk 60-74 years 1-dose series) 2020 Colorectal Cancer Screening: Colonoscopy 05/07/2022 Depression Screening 05/07/2022 Lung Cancer Screening (Low Dose CT) 05/07/2022 Social Influencers of Health Screening 05/07/2022 Cholesterol Screening (Lipid Panel) 03/05/2023 03/05/2018, 03/05/2018 Influenza Vaccine (#1) 2024 8, 04/27/2016 Diabetes: Annual Urine Albumin-Creatinine Ratio (uACR) 05/27/2024 Diabetes: Blood Sugar Contro l Test (HGBA1C) 05/27/2024 03/05/2018 Hypertension/CHF/CAD Annual BMP Blood Test 05/27/2024 03/05/2018 Cervical Cancer Screening: HPV 03/16/2026 03/16/2021 HIV Screening Completed 01/11/2023 Hepatitis C Screening Completed 01/11/2023 HIB Vaccines Aged Out No longer eligi ble based on patient's age to complete this topic HPV Vaccines Aged Out No longer eligi ble based on patient's age to complete this topic Hepatitis A Vaccines Aged Out No long er eligible based on patient's age to complete this topic Hepatitis B Vaccines Aged Out No long er eligible based on patient's age to complete this topic IPV Vaccines Aged Out No longer eligi ble based on patient's age to complete this topic MMR Vaccines Aged Out No longer eligi ble based on patient's age to complete this topic Meningococcal ACWY Vaccine Aged Out N o longer eligible based on patient's age to complete this topic RSV Immunization Patients Under 20 months Aged Out No longer eligible b ased on patient's age to complete this topic Varicella Vaccines Aged Out No longer eligible based on patient's age to complete this topic Procedures Procedure Name Priority Date/Time Associated Diagnosis Comments HEPATITIS C SCREENING Routine 01/11/2023 HIV SCREENING Routine 01/11/2023 HPV Routine 03/16/2021 CHAPARRO SCREENING DIGITAL Routine 02/21/2018 6:34 PM EDT Encounter for screening mammogram for malignant neoplasm of breast from Last 3 Months or Most Recently Relevant to Health Maintenance Results * HIV Screening (01/11/2023) HIV Screening abstracted Historical Provider MD SYDNI CASTILLO E * Hepatitis C Screening (01/11/2023) Hepatitis C Screening abstracted Historical Provider MD SYDNI CASTILLO E * Cervical Cancer Screening: HPV (03/16/2021) Cervical Cancer Screening: HPV abstracted, negative Historical Provider [facility] ANNA E * CHAPARRO SCREENING DIGITAL (02/21/2018 6:34 PM EDT) Anatomical Region Laterality Modality Mammography 02/21/2018 3:17 PM EDT Narrative 02/21/2018 6:[address] [facility] Diagnostic Imaging Department [address] [place] [id number] Patient: ??SRAVAN KINNEY ?/Age/Sex: 1960 - 57 - F Unit#: ??[id number] ? Location/Status: ??SPDIMAM/REG CLI ? Mnemonic/Ordering Site: ??DIGSC/SPMAM Ordering Physician: ??DAYAMI FERRER CNM [facility] Screening Digital - 02/21/18 - 1551 EXAM: [facility] Screening Digital EXAM DATE AND TIME: 02/21/2018 3:52 PM HISTORY: ??Screening. COMPARISON: ??Previous mammograms performed in [place] are not available for review. TECHNIQUE: CC and MLO views of both breasts were obtained using full field digital mammography. Bilateral digital breast tomosynthesis was performed in the MLO projection. Computer aided detection with the RVX 7.2-H was employed. TISSUE DENSITY: a. The breasts are almost entirely fatty. FINDINGS: No suspicious masses, grouped microcalcifications, or areas of architectural distortion are seen. Few benign calcifications are scattered bilaterally. The s kin and vascularity are unremarkable. IMPRESSION: No mammographic evidence of malignancy is seen. A negative mammogram in the presence of a clinically suspicious palpable abnormality does not preclude the possibility of malignancy or alter the indications for biopsy. BI-RADS: ??Category 2: Benign RECOMMENDATION(S): 1: Routine screening mammogram BILATERAL in 1 year. 19753, 17490 3342F, 7025F Dictating Physician: ??KASANDRA FIGUEROA MD Electronically Signed by: ??KASANDRA FIGUEROA MD Dic Date/Time: ??02/21/18 1833 Sign date/Time: ??02/21/18 1834 Procedure Note Kasandra Figueroa MD - 05/17/2022 [facility] Diagnostic Imaging Department [address] [place] [address] Patient: CAROLIN DELANEYSRAVAN./Age/Sex: 1960 - 57 -F Unit#: [id number] [facility]Ordering Site: [facility] Ordering Physician: DAYAMI FERRER CNM [facility] Screening Digital - 02/21/18 - 1552 EXAM: [facility] Screening Digital EXAM DATE AND TIME: 02/21/2018 3:52 PM HISTORY: Screening. COMPARISON: Previous mammograms performed in [place] are notavailable for review. TECHNIQUE: CC and MLO views of both breasts were obtained using fullfield digital mammography. Bilateral digital breast tomosynthesis was performedin the MLO projection. Computer aided detection with the RVX 7.2-Hwas employed. TISSUE DENSITY: a. The breasts are almost entirely fatty. FINDINGS: No suspicious masses, grouped microcalcifications, or areas ofarchitectural distortion are seen. Few benign calcifications are scattered bilaterally.The s kin and vascularity are unremarkable. IMPRESSION: No mammographic evidence of malignancy is seen. A negative mammogram in the presence of a clinically suspicious palpable abnormality does not preclude the possibility of malignancy or alter the indications for biopsy. BI-RADS: Category 2: Benign RECOMMENDATION(S): 1: Routine screening mammogram BILATERAL in 1 year. 29428, [id number] 3512F, 7022F Dictating Physician: KASANDRA FIGUEROA MD Electronically Signed by: KASANDRA FIGUEROA MD Dic Date/Time: 02/21/181832 Sign date/Time: 02/21/181833 Dayami Ferrer CNM IMG BI PROCEDURES from Last 3 Months or Most Recently Relevant to Health Maintenance Care Teams Liner Reroll Tender Relationship Specialty Start Date End Date Sravan Wei MD [address] [place] [phone] PCP - General 01/11/23
--- OUTSIDE RECORDS SUMMARY | 2024-06-27 16:37 | XMS_ITS | Encounter Summary ---
Author Organization [facility] Address [address] [place] [address] Care Team Providers Care Stock Or Delivery Clerk Name Role Phone Kim Wei MD Primary Care Provide r Encounter Details Date Type Department Care Team ([facility] st Contact Info) Description 03/13/2024 Orders Only [facility] MEDICINE [address] [place], [place] [id number] Kim Wei MD [address] [place] [address] Social History Tobacco Use Types Packs/Day Years [...] with others, in a hotel, in a correction, living outside on the street, on a [...] on file documented as of this encounter Procedures Procedure Name Priority Date/Time Associated Diagnosis Comments GLUCOSE, WHOLE BLOOD Routine 03/13/2024 10:19 AM EDT documented in this encounter Results * Glucose, Whole Blood (03/13/2024 10:19 AM EDT) Glucose, Whole Blood 79 60 - 115 mg/dL [facility] Comment:METER #: [id number] 03/13/2024 10:1 9 AM EDT 03/13/2024 10:24 AM EDT us Generic External Data Provider LAB BLOOD ORDERAB LES Final Result [facility] [address] [place] [phone] documented in this encounter Visit Diagnoses Not on filedocumented in this encounter Additional Health Concerns Assessment Noted Time PHQ-9 Depression Total Score: 10 024 3:41 PM EDT documented as of this encounter Care Teams Stock Or Delivery Clerk Relationship Specialty Start Date End Date Kim Wei MD [address] [place] [address] PCP - General Family Medicine 03/21/18 documented as of this encounter
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
--- OUTSIDE RECORDS SUMMARY | 2024-06-27 16:37 | XMS_ITS | Encounter Summary ---
Author Organization [facility], Address [facility] [address] [place] [address] Phone Care Team Providers Care Semiconductor Packages Tester Name Role Phone Kim Wei MD Primary Care Provide r Encounter Details Date Type Department Care Team (Late st Contact Info) Description 02/17/2022 Documentation Only [facility], [address] [place] [address] Lito Byrd MD [address] [place] [address] Social History Tobacco Use Types Packs/Day Years [...] on file Sexual Orientation Not on file documented as of this encounter Plan of Treatment Not on file documented as of this encounter Visit Diagnoses Not on filedocumented in this encounter Care Teams Semiconductor Packages Tester Relationship Specialty Start Date End Date Kim Wei MD [address] [place] [phone] PCP - General Internal Medicine 04/27/21 documented as of this encounter
== END 2024-06-27 13:50 | disposition home or self-care (01) ==
PROVIDERS: PCP Internal Medicine; Visit Provider Orthopaedic Surgery
DX: Z98.890 Other specified postprocedural states (principal)
CPT/HCPCS: 99024

== ENCOUNTER → 2024-06-27 12:49 | Outpatient (BNVA) | payer OTHER, SELFPAY | PROVIDERS: PCP Internal Medicine; Visit Provider Orthopaedic Surgery | DX: Z47.89 Encounter for other orthopedic aftercare (principal); Z98.890 Other specified postprocedural states | CPT/HCPCS: 99212 ==

== ENCOUNTER 2024-07-25 13:34 | Outpatient (RCR) | payer OTHER, SELFPAY ==
--- NOTE | 2024-04-29 16:32 | MHC.PT.EP ---
[facility] [place] Office [place] Office [place] Office [address] Ophelia Ramesh [address] [phone] F: [phone] F: [phone] F: [phone] F: [phone] Physical Therapy Plan of Care Date of Evaluation: 04/29/24 Date of Surgery: 04/10/24 Diagnosis: s/p Right shoulder RTC repair (Subscapularis and Infraspinatus), biceps tenotomy, SAD on 04/10/24 Assessment: Pt is a pleasant 63yo F who presents 2 weeks post op s/p Right shoulder RTC repair (Subscapularis and Infraspinatus), biceps tenotomy, and SAD on 04/10/[address] Harrington. Pt presents to PT in her sling without abduction pillow. I discussed with pt importance of wearing sling properly. She presents to PT with expected impairments in pain, decreased ROM, decreased strength, and impaired posture. She is limited functionally by lifting, reaching, overhead ADLs, and general use of R UE. She is a good candidate for skilled PT in order to address current impairments to facilitate return to PLOF. She is recommended to be seen 2x/week for 10 weeks in order to progress per protocol to facilitate return to PLOF Frequency and Duration: The patient will be seen 2x/week for 10 weeks Short Term Goals: Pt will be I with HEP to promote self management of symptoms Pt will be I with donning/doffing sling properly with abduction pillow Pt will achieve PROM flexion to 100 deg Calender Inspector Goals: Pt will achieve full flexion AROM by week 10 per protocol Pt will achieve full strength all planes of R shoulder to assist with lifting and reaching per protocol Pt will perform overhead ADLs with minimal to no compensation Treatment Plan: Modalities to reduce pain, spasms and effusion. Manual therapy to restore motion and function. Therapeutic exercise to improve strength and flexibility. Neuromuscular re-education for posture and balance. Therapeutic activities to return to functional activities of daily living. Electronically signed by: Zaina Mancera, PT, DPT Please sign and return to therapist. Thank you for your referral.
--- NOTE | 2024-07-25 16:51 | MHC.PT.DC ---
[facility] [place] Office [place] Office [place] Office [address] Ophelia Ramesh [address] [phone] F: [phone] F: [phone] F: [phone] F: [phone] Physical Therapy Discharge Report Diagnosis: s/p Right shoulder RTC repair (Subscapularis and Infraspinatus), biceps tenotomy, SAD on 04/10/24 Date of Surgery: 04/10/24 Date of Evaluation: 04/29/24 Date of Discharge: 07/25/24 Treatments to Date: 16 Cancellations to Date: No Shows to Date: Discharge Status: Improved Function Independent with HEP Discharge Summary: Pt has made good progress since SOC. She continues to have limitations with her ROM and strength however she has made good progress since SOC. She is able to achieve AAROM flexion 145 degrees, IR 65 deg, and ER 60 deg. She is improving strength and function noted throughout sessions. She is independent with HEP. She is being D/C to HEP this date. I provided pt with printed, updated copy of HEP and RTB and discussed the importance of performing HEP consistently in order to maintain and improve further ROM, strength, and function. Pt verbalized understanding. Pt reports no further questions or concerns for PT at D/C Electronically signed by: Zaina Mancera, PT, DPT Please sign and return to therapist. Thank you for your referral.
== END 2024-07-25 16:51 | disposition home or self-care (01) ==
LOC: HO.PT 13:34
PROVIDERS: PCP Internal Medicine; Visit Provider Physician Assistant
DX: M12.811 Other specific arthropathies, not elsewhere classified, right shoulder (principal)
CPT/HCPCS: 97110; 97140; 97162; 97530

== ENCOUNTER 2024-08-12 13:09 | Outpatient (AMB) | payer OTHER, SELFPAY ==
--- NOTE | 2024-08-12 13:11 | MHC.OFFVIS ---
Intake Visit Reasons: OV- RT RTC Repair biceps tenotomy, SAD-Follow up Intake Note: Kim is a 63 year old right hand dominant female who presents today for a follow up of her right shoulder about 4 months s/p RT shoulder RTC Repair (Subscapularis and Infraspinatus), biceps tenotomy, SAD 04/10/24. At her last visit it was discussed that she needs to attend PT - She was seeing PT and was discharged on 07/25/24. Allergies No Known Allergies Allergy (Verified 08/12/24 13:12) HPI HPI OV- RT RTC Repair biceps tenotomy, SAD-Follow up: Details: Kim is a 63 year old right hand dominant female who presents today for a follow up of her right shoulder about 4 months s/p RT shoulder RTC Repair (Subscapularis and Infraspinatus), biceps tenotomy, SAD 04/10/24. At her last visit it was discussed that she needs to attend PT - She was seeing PT and was discharged on 07/25/24. [facility] Medical History Osteoarthritis HTN (hypertension) Tobacco dependence Diabetes Surgical History History of shoulder surgery H/O left knee surgery Social History Are you a primary home health care worker to a significant other at home: No Do you presently have visiting nurse or other home services: No Patient Tobacco Use Status: Current everyday Tobacco user Tobacco use type: Cigarette Cigarette Packs Per Day: 0.5 Cigarettes Per Day: 1 Current occupational status: disabled Physical Exam Extrem Other: Active abduction to 80 degrees Forward flexion to 100 Good strength in abduction but mild pain. Assessment & Plan Assessment & Plan (1) Status post right rotator cuff repair: Code(s): Z98.890 - Other specified postprocedural states Category: Surgical Plan: Status post rotator cuff repair and a 64-year-old woman who is doing reasonably well considering. Follow up in 3 months. Home exercise program. Coding Level of Care Code Est Pt Level 3 (94374) Diagnoses Status post right rotator cuff repair Z98.890
== END 2024-08-12 13:22 | disposition home or self-care (01) ==
LOC: HO.HOS 13:09
PROVIDERS: PCP Internal Medicine; Visit Provider Orthopaedic Surgery
DX: M12.811 Other specific arthropathies, not elsewhere classified, right shoulder (principal)
CPT/HCPCS: 99213

== ENCOUNTER → 2024-08-12 13:09 | Outpatient (BNVA) | payer OTHER, SELFPAY | PROVIDERS: PCP Internal Medicine; Visit Provider Orthopaedic Surgery | DX: Z98.890 Other specified postprocedural states (principal) | CPT/HCPCS: 99212 ==

== ENCOUNTER 2024-11-14 12:54 | Outpatient (AMB) | payer OTHER, SELFPAY ==
--- NOTE | 2024-11-14 12:55 | MHC.OFFVIS ---
Vital Signs 11/14/24 12:56 Height 4 ft 5 in Weight 179 lb BMI 44.8 Intake Visit Reasons: OV-RT RTC Repair biceps 04/10/24 Intake Note: Kim is a 63 year old right hand dominant female who presents today for a follow up of her right shoulder about 7 months s/p RT shoulder RTC Repair (Subscapularis and Infraspinatus), biceps tenotomy, SAD 04/10/24. She continues to complete her home exercise program. Patient reports that she is having continued pain, she continues to wear the sling. Allergies No Known Allergies Allergy (Verified 11/14/24 12:57) HPI HPI OV-RT RTC Repair biceps 04/10/24: Details: Kim is a 63 year old right hand dominant female who presents today for a follow up of her right shoulder about 7 months s/p RT shoulder RTC Repair (Subscapularis and Infraspinatus), biceps tenotomy, SAD 04/10/24. She continues to complete her home exercise program. Patient reports that she is having occasional pain. She denies dislocation. Overall she states she is doing well. She feels like the surgery has been helpful. She does also admit that she has not done any physical therapy [facility] Medical History Osteoarthritis HTN (hypertension) Tobacco dependence Diabetes Surgical History History of shoulder surgery H/O left knee surgery Social History Are you a primary caretaker resort to a significant other at home: No Do you presently have visiting nurse or other home services: No Patient Tobacco Use Status: Current everyday Tobacco user Tobacco use type: Cigarette Cigarette Packs Per Day: 0.5 Cigarettes Per Day: 1 Current occupational status: disabled Physical Exam Vital Signs: BMI result Body Mass Index 44.8 Extrem Other: On exam she has 30/90/140/S1 Negative empty can Mildly positive Velarde and Neer Assessment & Plan Assessment & Plan (1) Status post right rotator cuff repair: Code(s): Z98.890 - Other specified postprocedural states Category: Surgical Plan: [age] woman status post rotator cuff repair biceps tenotomy. Overall she is doing well. She has not done any physical therapy. Her motion is okay and she has mild pain. She does have some degenerative changes and I would expect her to be doing about as well as she is doing. She understands this and is satisfied with the results. She can see me if she needs to. Coding Level of Care Code Est Pt Level 3 (83255) Diagnoses Status post right rotator cuff repair Z98.890
[2024-11-14 12:56] VITALS: BMI 44.8
--- OUTSIDE RECORDS SUMMARY | 2024-11-14 14:00 | XMS_ITS | Encounter Summary ---
Author Organization [employer] Address [address] [facility] [place] [address] Care Team Providers Care Assistant Baseball Coach Name Role Phone Kim Wei MD Primary Care Provide r Encounter Details Date Type Department Care Team ([facility] st Contact Info) Description 03/13/2024 Orders Only [facility] MEDICINE [address] [place], [place] [phone] Kim Wei MD [address] [place], [place] [phone] Social History Tobacco Use Types Packs/Day Years [...] with others, in a hotel, in a custodial, living outside on the street, on a [...] Whole Blood 79 60 - 115 mg/dL [facility] Comment:METER #: [id number] 03/13/2024 10:1 9 AM EDT 03/13/2024 10:24 AM EDT us Generic External Data Provider LAB BLOOD ORDERAB LES Final Result [facility] [address] [place] [phone] documented in this encounter Visit Diagnoses Not on filedocumented in this encounter Additional Health Concerns Assessment Noted Time PHQ-9 Depression Total Score: 10 024 3:41 PM EDT documented as of this encounter Care Teams Assistant Baseball Coach Relationship Specialty Start Date End Date Kim Wei MD [address] [place] [address] PCP - General Family Medicine 03/21/18 documented as of this encounter
== END 2024-11-14 13:41 | disposition home or self-care (01) ==
LOC: HO.HOS 12:54
PROVIDERS: PCP Internal Medicine; Visit Provider Orthopaedic Surgery
DX: Z47.89 Encounter for other orthopedic aftercare (principal); Z98.890 Other specified postprocedural states
CPT/HCPCS: 99213

== ENCOUNTER → 2024-11-14 12:54 | Outpatient (BNVA) | payer OTHER, SELFPAY | PROVIDERS: PCP Internal Medicine; Visit Provider Orthopaedic Surgery | DX: Z47.89 Encounter for other orthopedic aftercare (principal); Z98.890 Other specified postprocedural states | CPT/HCPCS: 99212 ==